=== PATIENT | female | born 1945 | race Caucasian/White ===

== ENCOUNTER → 2018-05-08 11:14 | Outpatient (CLI) | payer MEDICARE, MEDICAID, SELFPAY ==
[2018-05-08 12:38] LABS: Alanine Aminotransferase 28 U/L (12-78); Albumin Level 3.7 gm/dL (3.4-5.0); Alkaline Phosphatase 71 U/L (46-116); Anion Gap 16.5 mEq/L (5-15); Aspartate Amino Transferase 25 U/L (15-37); Bilirubin,Total 0.5 mg/dL (0.2-1.0); Blood Urea Nitrogen 26 mg/dL (7-18); Calcium 8.9 mg/dL (8.5-10.1); Carbon Dioxide 23 mmol/L (21.0-32.0); Chloride 104 mmol/L (98-107); Chol/HDL Ratio 4.3 (1-3.5); Cholesterol 260 mg/dL (140-200); Creatinine,Serum 1.16 mg/dL (0.55-1.02); Estimated Glomerular Filt Rate 46 ml/min (>60); GFR (African American) 55 ML/MIN (>60); Globulin 3.6 gm/dl (1.3-3.2); Glucose 97 mg/dL (74-106); HDL Cholesterol 60 mg/dL (29-89); LDL Cholesterol 181 mg/dL (0-130); Potassium 4.5 mmoL/L (3.5-5.1); Sodium 139 mmol/L (136-145); Total Protein,Serum 7.3 gm/dL (6.4-8.2); Triglycerides 97 mg/dL (30-200); VLDL Cholesterol 19 mg/dL (0-40)
== END ==
PROVIDERS: Visit Provider Physician Assistant
DX: Z13.220 Encounter for screening for lipoid disorders (principal); E78.00 Pure hypercholesterolemia, unspecified
CPT/HCPCS: 36415; 80053; 80061

== ENCOUNTER → 2020-09-15 12:47 | Outpatient (CLI) | payer MEDICARE, MEDICAID, SELFPAY ==
--- NOTE | 2020-09-15 13:00 | US_ITS ---
PROCEDURE: US THYROID CLINICAL INDICATION: H/O GOITER COMPARISON: No exams were available for comparison FINDINGS: Right lobe: 1.2 x 0.7 x 0.7 centimeters Left lobe: Left thyroid lobectomy is noted. Isthmus: 0.16 Additional findings: Right lobe of thyroid gland is small in size and demonstrates minor heterogeneous echogenicity. Vascularity appears within normal limits. No focal nodules within the limitations of the study. IMPRESSION: Left thyroid lobectomy. Heterogeneous echotexture of the thyroid gland. Dictated by: Ilda Lee 09/15/2020 16:48 Ilda Lee in [facility] 09/15/2020 16:48
== END ==
PROVIDERS: PCP Family Medicine; Visit Provider Family Medicine
DX: Z86.39 Personal history of other endocrine, nutritional and metabolic disease (principal)
CPT/HCPCS: 76536

== ENCOUNTER → 2020-11-21 11:51 | Outpatient (CLI) | payer MEDICARE, MEDICAID, SELFPAY | PROVIDERS: Visit Provider Internal Medicine Gastroenterology | DX: Z01.812 Encounter for preprocedural laboratory examination (principal); Z20.822 Contact with and (suspected) exposure to COVID-19; Z13.810 Encounter for screening for upper gastrointestinal disorder | CPT/HCPCS: U0003 ==

== ENCOUNTER 2020-11-24 08:36 | Day surgery (SDC) | payer MEDICARE, MEDICAID, SELFPAY ==
[2020-11-20 11:37] VITALS: BMI 25.6
[2020-11-24] VITALS (7 sets, daily range): BP systolic 96–209; BP diastolic 41–67; PULSE 38–45; RESP 16–18; TEMP 36.1; O2SAT 94–97
--- NOTE | 2020-11-24 09:53 | P.PCN_ITS ---
[facility] Procedure Note Procedure Note:: Upper Endoscopy Procedure Report: Esophagogastroduodenoscopy with cold biopsies and TTS balloon dilation Endoscopost: Shravan Casey II, MD Referring Physician: Terrence Singer MD Date of Procedure: November 24, 2020 Equipment: Olympus GIF 190 standard upper endoscope Sedation: MAC sedation Indications: Mrs. Moran is a 75-year-old female with dysphagia, throat fullness and globus sensation. She has mostly trouble with swallowing large pills. She does get some mild intermittent heartburn for which she takes Tums or other antacids (i.e. Tanja-Beggs). She does have some hoarseness. She also reports moderate belching. She does state that she had goiter surgery and removal of one half of the thyroid goiter 40 or 50 years ago. Her symptoms have not changed over time. She has had no prior endoscopy. She reports no abdominal pain or bloating. She reports regular bowel function but does have some incomplete bowel evacuation. Procedure: Prior to the procedure, a history and physical exam was performed, and patient's medications and allergies were reviewed. The risks, benefits and alternatives of the sedation and procedure were discussed with the patient. All questions were answered and informed consent was obtained. The patient was brought to the procedure room. Patient identification and proposed procedure were verified by the physician and the nurse. The patient was placed in a left lateral decubitus position and the scope was passed under direct vision. Throughout the p rocedure, the patient's blood pressure, pulse, and oxygen saturations were monitored continuously. The upper GI endoscopy was accomplished without difficulty. The patient tolerated the procedure well. Findings: The scope was passed directly into the upper esophagus and advanced to the third portion of the duodenum. The post bulbar duodenum and duodenal bulb were normal with normal mucosa and conniventes. The scope was withdrawn through a normal duodenal bulb and pylorus into the stomach. There was some mild reactive gastropathy of the antrum with some bile reflux. Cold biopsies were taken from the antrum. The body and fundus were grossly normal. Upon retroflexion there was a large hiatal hernia without Nic's erosions. This was paraesophageal hernia and was 8 cm. The diaphragmatic hiatus was at 42 cm and the gastroesophageal junction/top of the gastric folds was at 34 cm. The scope was then withdrawn into the esophagus. There was no evidence of reflux esophagitis or Munoz's. There was a serrated Z-line and biopsies were taken at the GE junction. There was evidence of presbyesophagus and esophageal dysmotility. The entire esophagus was dilated to 60 Sudanese/20 mm with a TTS hydrostatic balloon. There was some resistance at the cricopharyngeus. The remainder of the esophageal mucosa was normal. Impression: 1. Cricopharyngeal spasm status post dilation to 20 mm 2. Nonerosive GERD with moderate esophageal dysmotility/presbyesophagus 3. Large hiatal hernia/paraesophageal hernia (8 cm) 4. Mild linear reactive gastropathy Plan: I will follow-up the biopsies. The patient does have esophageal dysmotility with cricopharyngeal spasm which may be resulting in the throat fullness and soreness. We will discuss management/treatment options.
--- NOTE | 2020-11-24 10:00 | HMH.ANESCL ---
[facility] Anesthesia Checklist - Structural Data Admitted From: Home Planned Operative Procedure/s: egd Consent for Planned Operative Procedure(s) Verified: Yes - Airway Assessment C-Spine Mobility Assessed: Yes TMJ Mobility Assessed: Yes Dentition: Poor Dentition - Neurological Assessment Level of Consciousness: Awake, Alert, Appropriate - Anesthesia Plan Anesthesia Risk discussed: Yes Anesthesia Plan: Verified ASA Class: II Anesthesia Type: MAC [facility] History I have reviewed the patient's past medical history: Yes Medical History: Reports:: Heart Murmur, Hyperlipidemia Denies:: Cancer, Diabetes Mellitus Type 1, Diabetes Mellitus Type 2, Internal Pacemaker, MRSA, Seizures *Have you ever received a pneumonia vaccine?: No *Have you received a flu vaccine this season?: No Anesthesia experience/problems:: none Other Surgeries: No: Pacemaker Amputation: No Fractures: No - *Social History Last grade of school completed: 9th or 10th Smoking Status: Never smoker Alcohol Intake: never Substance Use Type: denies use *Occupational Status:: retired Housing: house Household Members: family *Travel in the last 8 weeks: None Family Hx:: No significant family history
== END 2020-11-24 11:06 | disposition home or self-care (01) ==
LOC: OUTP 08:38
PROVIDERS: PCP Family Medicine; Visit Provider Internal Medicine Gastroenterology
PROC: 0DJ08ZZ Inspection of Upper Intestinal Tract, Via Natural or Artificial Opening Endoscopic (ICD-10-PCS; CPT 43235; principal; 2020-11-24 09:30)
DX: J39.2 Other diseases of pharynx (principal); K21.9 Gastro-esophageal reflux disease without esophagitis; K22.4 Dyskinesia of esophagus; K44.9 Diaphragmatic hernia without obstruction or gangrene; K31.9 Disease of stomach and duodenum, unspecified; R01.1 Cardiac murmur, unspecified; E78.5 Hyperlipidemia, unspecified; Z79.899 Other long term (current) drug therapy
CPT/HCPCS: 43239; 43249; 88305; C1726

== ENCOUNTER 2020-12-22 11:00 | Emergency (ER) | payer MEDICARE, MEDICAID, SELFPAY ==
[2020-12-22 11:02] VITALS: BP 220/105; PULSE 43; RESP 18; TEMP 36.8; O2SAT 97; BMI 28.3
--- NOTE | 2020-12-22 11:05 | HMH.EDGENADL ---
ED Disposition Clinical Impression: Third degree heart block by electrocardiogram Disposition: Xfer Short-Term Hosp Condition on Discharge: Good Referrals: Elia Singer MD [Primary Care Provider] - - Critical Care Critical Care Time: Yes (Patient required greater than 30 minutes of critical care monitoring) Attestation: On , the high probability of a clinically significant, sudden or life threatening deterioration of the following system(s) required my full and direct attention, intervention and personal management. The time I documented below is in addition to time spent performing reported procedures but includes the following listed in this critical care notation. Vital system(s) involved:: Circulatory Failure My critical care processes included: Assessment & monitoring of V/S, Initial and Re-exams, Data Review/Interpretation, Coordinating Care, Medication Orders and management, Documentation Medical Decision Making - Isaac Inquiry Pt receiving controlled substance: No Vital Signs: 12/22/20 11:02 12/22/20 11:45 12/22/20 12:11 Temperature 98.2 F Temperature Source Oral Pulse Rate 42 L 45 L Pulse Rate [Right] 43 L Respiratory Rate 18 22 17 Blood Pressure 221/72 H Blood Pressure [Right Arm] 220/105 H Blood Pressure Mean [Right Arm] 143 Blood Pressure Source [Right Arm] Manual Cuff/ Auscultation 02 Sat by Pulse Oximetry 97 94 L 94 L Oxygen Delivery Method Room Air Room Air - Lab Data Lab Results 12/22/20 11:18: WBC 10.4, RBC 4.83, Hgb 14.3, Hct 43.1, MCV 89.3, MCH 29.7, MCHC 33.3, RDW 13.9, Plt Count 185, MPV 8.8, Neut % (Auto) 70.2, Lymph % (Auto) 18.0, Woodson % (Auto) 6.8, Eos % (Auto) 4.1, Baso % (Auto) 1.0, Neut # (Auto) 7.3, Lymph # (Auto) 1.9, Woodson # (Auto) 0.7, Eos # (Auto) 0.4, Baso # (Auto) 0.1 12/22/20 11:18: Sodium 140, Potassium 4.5, Chloride 109 H, Carbon Dioxide 24, Anion Gap 11.5, BUN 21 H, Creatinine 1.20 H, Estimated Creat Clear 42, Estimated GFR 44 L, Est GFR ( Amer) 53 L, Glucose 100, Calcium 8.9, Total Bilirubin 0.9, AST 27, ALT 25, Alkaline Phosphatase 83, Total Protein 7.6, Albumin 4.3, Globulin 3.3 H, Albumin/Globulin Ratio 1.3 Result diagrams: 12/22/20 11:18 12/22/20 11:18 Orders (Tests/Meds): ED MEDICATIONS Discontinued Medications Generic Name Dose Route Start Last Admin Trade Name Freq PRN Reason Stop Dose Admin Lactated Ringer's 500 mls @ 999 mls/hr 12/22/20 12:00 12/22/20 12:29 Lactated Ringer's 1000 Ml Bag IV 12/22/20 12:30 999 mls/hr .Q31M PRANAV Administration ORDERS Category Date Time Status Covid-19 Nasal PCR ([facility]) Routine Lab 12/22/20 12:51 Ordered T4 (Thyroxine) Stat Lab 12/22/20 11:18 Received Thyroid Stimulating Hormone Stat Lab 12/22/20 11:18 Received CA echo doppler complete Stat Y 12/22/20 13:02 Ordered - ECG Data Tracing #1 ECG initial impression date: 12/22/20 ECG initial impression time: 11:17 Normal Sinus Rhythm: No (third degree block with a ventricular rate of 43) Conduction abnormalities present: 3rd degree AV block Medical Decision Narrative: Upon arrival patient is hypotensive bradycardic and found to be in third-degree heart block with past medical history of rheumatic fever. Patient was mentating appropriately on room air in no acute distress she has no chest pain. Laboratory work-up is obtained and overall unremarkable creatinine was 1.2 no previous baseline noted. Electrolytes all appear to be within normal limits. I spoke with our veterinary poultry inspector on the phone that did not have anybody with interventional capabilities overnight patient also has a son who is in the hospital at [facility] she stated that if she were to be admitted to the hospital she would prefer to be admitted to [facility]. I discussion with Dr. Lawton and discussed the patient with him he stated that he would be happy to take care of her if she were to stay here. Patient requested transfer spoke with Dr. Guerrero
--- NOTE | 2020-12-22 11:10 | ECG_ITS ---
APPROVED REPORT Exam: Resting ECG HR:43 bpm ECG Measurements Heart Rate 43 AXES ID P 63 QRSd 126 QRS 76 QT 532 T 54 QTc 449 Conclusion Marked sinus bradycardia with AV dissociation and Wide QRS rhythm Right bundle branch block Abnormal ECG Electronically signed by : Khang Peter MD 12/22/2020 17:16:21
[2020-12-22 11:45] VITALS: PULSE 42; RESP 22; O2SAT 94
[2020-12-22 11:55] LABS: Basophils # 0.1 K/mm3 (0-0.2); Eosinophils # 0.4 K/mm3 (0.0-0.4); Eosinophils % 4.1 % (0.1-12.0); Hematocrit 43.1 % (37.0-47.0); Hemoglobin 14.3 g/dL (12.2-16.2); Lymphocytes # 1.9 K/mm3 (0.7-4.5); Mean Corpuscular HGB Conc 33.3 g/dL (31.8-35.4); Mean Corpuscular Hemoglobin 29.7 pg (27.0-31.2); Mean Corpuscular Volume 89.3 fl (81-99); Mean Platelet Volume 8.8 fl (7.4-10.4); Monocytes # 0.7 K/mm3 (0.1-1.0); Monocytes % 6.8 % (1.7-9.3); Neutrophils # 7.3 K/mm3 (1.8-7.8); Neutrophils % 70.2 % (37.0-80.0); Platelet Count 185 K/mm3 (142-424); Red Blood Count 4.83 M/mm3 (4.20-5.40); Red Cell Distribution Width 13.9 % (11.5-17.5); White Blood Count 10.4 K/mm3 (4.8-10.8)
[2020-12-22 11:57] LABS: Chloride 109 mmol/L (98-107); Potassium 4.5 mmoL/L (3.5-5.1); Sodium 140 mmol/L (136-145)
[2020-12-22 12:00] LABS: Alanine Aminotransferase 25 U/L (12-78); Albumin Level 4.3 g/dl (3.5-5.0); Albumin/Globulin Ratio 1.3 (1.1-1.8); Alkaline Phosphatase 83 U/L (38-126); Anion Gap 11.5 mEq/L (5-15); Aspartate Amino Transferase 27 U/L (14-36); Bilirubin,Total 0.9 mg/dl (0.2-1.3); Blood Urea Nitrogen 21 mg/dl (7-17); Calcium 8.9 mg/dl (8.4-10.2); Carbon Dioxide 24 mmol/L (22.0-30.0); Creatinine Clearance Estimated 42 mL/min (50-200); Estimated Glomerular Filt Rate 44 ml/min (>60); GFR (African American) 53 ML/MIN (>60); Globulin 3.3 g/dL (1.3-3.2); Glucose 100 mg/dl (74-100); Total Protein,Serum 7.6 g/dl (6.3-8.2)
[2020-12-22 12:11] VITALS: BP 221/72; PULSE 45; RESP 17; O2SAT 94
--- NOTE | 2020-12-22 12:13 | PC.NURSE ---
Cardiology to return call.
--- NOTE | 2020-12-22 12:30 | PC.NURSE ---
LATASHA BARRAGAN spoke with PEE Henson for cardiology at this time
--- NOTE | 2020-12-22 12:36 | PC.NURSE ---
patient signed DNR paperwork and is in hospital file
--- NOTE | 2020-12-22 12:44 | PC.NURSE ---
LATASHA BARRAGAN at speaking with pt and his sister about POC at this time
--- NOTE | 2020-12-22 12:48 | PC.NURSE ---
Calling [facility] at this time.
--- NOTE | 2020-12-22 12:52 | PC.NURSE ---
[facility] to return call
--- NOTE | 2020-12-22 12:53 | PC.NURSE ---
LATASHA BARRAGAN speaking with Dr. Lawton
--- NOTE | 2020-12-22 12:53 | PC.NURSE ---
speaking to dr Lawton
--- NOTE | 2020-12-22 13:02 | CA_ITS ---
APPROVED REPORT EXAM: Comprehensive 2D, Doppler, and color-flow Echocardiogram Video Software Engineer: Fatimah Collado CRT Ht: 5 ft 1 in Wt: 150lbs BSA: 1.67 BP: 220/105 mmHg Indications: 3RD Degree AV BLOCK, BRADYCARDIA, HTN, HLD 2D Dimensions LVOT 1.70 cm (M/F) 1.5-2.5 LA Volume 52.30 mL LA Volume Index 31.30 mL/m2 (M/F) 16-34 M-Mode Dimensions RVDd 3.13 cm (0.9-2.6) LA Diam 3.67 cm (1.9-4.0) LVDd 3.88 cm (3.5-5.7) Ao Diam 2.76 cm (2.0-3.7) LVDs 2.28 cm (3.5-5.7) IVSd 1.63 cm (0.6-1.1) PWd 1.22 cm (0.6-1.1) EF (Teich) 72.80% FS 41.20% EDV (Teich) 65.10 mL ESV (Teich) 17.70 mL LV Diastology E Decel Time 140.00 (160-240 msec) E/A Ratio 1.61 MED E' 6.10 (< 7 cm/sec) MED A' 10.60 cm/s E'/MED E' Ratio 34.85 (>14) LAT E' 8.90 (<10 cm/sec) LAT A' 6.50 cm/s E/LAT E' Ratio 23.89 (>14) Aortic Valve LVOT Max 135.00 (70-110 cm/s) LVOT VTI 30.06 cm AoV Peak Kevin. 584.00 (50-130 cm/s) AI PHT 684.00 ms AO Peak GR. 136.70 mmHg AO Mean GR. 86.60 (<5 mmHg) AO VTI 162.08 (18-25 cm) EVETTE (VTI) 0.42 (2.5-4.5 cm2) Mitral Valve MV E Max Kevin. 213.00 (40-130 cm/s) MV A Velocity 132.00 (40-130 cm/s) E/A Ratio 1.61 MV Decel. Time 140.00 (160-240 ms) MV PHT 41.00 ms Pulmonary Valve PV Peak Velocity 247.00 (50-150 cm/s) Tricuspid Valve TR P. Velocity 415.00 cm/s RAP Estimate 10.00 mmHg RVSP 78.80 mmHg Left Ventricle Technically difficult study left atrium is mildly enlarged, left ventricle is normal size, mild concentric left ventricular hypertrophy, visually estimated ejection fraction 55% with no regional wall motion abnormality, diastolic parameters are inconclusive. Right Ventricle Right atrium and right ventricle are mildly enlarged with normal contractility. Aortic Valve Aortic valve is thickened and calcified, mean gradient of 98 mmHg is noted in the study, the valve area is calculated at 44 cm??? represents critical aortic stenosis, there is mild aortic insufficiency. Mitral Valve Mitral valve has mitral annular calcification which extends in both anterior and posterior mitral leaflet, the degree of mitral stenosis. The degree of mitral stenosis is not accurately calculated in the study. There is mild mitral regurgitation. Tricuspid Valve Tricuspid valve leaflets are minimally thickened, there is mild tricuspid regurgitation, calculated right ventricular systolic pressure 68 mmHg. Pulmonic Valve Pulmonic valve is poorly visualized. Great Vessels Aortic root is normal size. Inferior vena cava is not well visualized. Pericardium No significant pericardial effusion noted Conclusion 1. Biatrial enlargement, normal left ventricular size, mild concentric left ventricular hypertrophy, visually estimated ejection fraction 55% with no regional wall motion abnormality, diastolic parameters are inconclusive. 2. Thickened and calcified aortic valve with critical aortic stenosis valve area is 0.4 cm??? there is mild aortic insufficiency. 3. Thickened and calcified mitral valve degree of mitral stenosis is not ascertained by this study. 4. Mild mitral and tricuspid regurgitation. Calculated right ventricular systolic pressure is 68 mmHg. 5. No significant pericardial effusion noted. Electronically signed by : Tony Ozuna MD 12/24/2020 08:37:46
--- NOTE | 2020-12-22 13:02 | PC.NURSE ---
notified [facility] lab staff of doppler order
--- NOTE | 2020-12-22 13:05 | PC.NURSE ---
LATASHA BARRAGAN states cardiology at [facility] accepted pt, states they are going to speak with the medicine service about accepting pt and call us back
--- NOTE | 2020-12-22 13:24 | PC.NURSE ---
pt accepted per medicine service at [facility] waiting head bone grinder back from transfer center about bed availability
--- NOTE | 2020-12-22 13:26 | PC.NURSE ---
[facility] lab staff at for echo
[2020-12-22 13:34] LABS: Coronavirus 19, PCR Not Detected (NotDetected); Influenza A, PCR Not Detected (NotDetected); Influenza B, PCR Not Detected (NotDetected)
--- NOTE | 2020-12-22 13:37 | PC.NURSE ---
Dr Reyna Cardiology accepted pt. Dr Grubbs medicine accepted pt as well awaiting bed assignment
--- NOTE | 2020-12-22 14:07 | PC.NURSE ---
Gave report to Maylin ARRINGTON at [facility] at this time
--- NOTE | 2020-12-22 14:12 | PC.NURSE ---
calling [facility] for transfer at this time
[2020-12-22 14:15] VITALS: BP 201/91; PULSE 43; RESP 18; TEMP 36.8; O2SAT 97
--- NOTE | 2020-12-22 14:37 | PC.NURSE ---
Maylin ARRINGTON at [facility] aware that patient is leaving at this time
== END 2020-12-22 14:37 | disposition short-term general hospital (02) ==
PROVIDERS: Emergency Provider Emergency Medicine; PCP Family Medicine
DX: I44.2 Atrioventricular block, complete (principal); E03.9 Hypothyroidism, unspecified; I10 Essential (primary) hypertension; E78.5 Hyperlipidemia, unspecified; R01.1 Cardiac murmur, unspecified; Z79.899 Other long term (current) drug therapy; Z20.822 Contact with and (suspected) exposure to COVID-19
CPT/HCPCS: 80053; 84436; 84443; 85025; 93005; 93306; 99284; U0003

== ENCOUNTER 2021-04-15 15:30 | Emergency (ER) | payer MEDICARE, MEDICAID, SELFPAY ==
[2021-04-15 15:40] VITALS: BP 109/51; PULSE 77; RESP 20; TEMP 37.3; O2SAT 97; BMI 29.2
--- NOTE | 2021-04-15 16:29 | PC.NURSE ---
PATIENT SENT TO ER PER Gutierrez ROCHE APRN FOR FURTHER EVALUATION. REPORT GIVEN TO Chase MALDONADO RN
[2021-04-15 16:31] VITALS: BP 105/58; PULSE 69; RESP 18; TEMP 37.3; O2SAT 95; BMI 29.2
--- NOTE | 2021-04-15 16:38 | CT_ITS ---
PROCEDURE INFORMATION: Exam: CT Abdomen And Pelvis Without Contrast Exam date and time: 04/15/2021 4:38 PM Age: 75 years old Clinical indication: Other: Bloody stools and diarrhea; Prior surgery; Surgery type: Cardiac stents, pacemaker; Additional info: Diarrhea bloody stools TECHNIQUE: Imaging protocol: Computed tomography of the abdomen and pelvis without contrast. Radiation optimization: All CT scans at this facility use at least one of these dose optimization techniques: automated exposure control; mA and/or kV adjustment per patient size (includes targeted exams where dose is matched to clinical indication); or iterative reconstruction. COMPARISON: No relevant prior studies available. FINDINGS: Lungs: Chronic reticular ground-glass and honeycombing in the bilateral lung bases. This is most compatible with chronic interstitial lung disease. Diaphragm: A large hiatal hernia is present. Liver: Normal. No mass. Gallbladder and bile ducts: Normal. No calcified stones. No ductal dilation. Pancreas: There is diffuse atrophy of the pancreatic parenchyma. There is diffuse, benign fatty infiltration of the pancreas. The pancreas is otherwise unremarkable. Spleen: Normal. No splenomegaly. Adrenal glands: Normal. No mass. Kidneys and ureters: Normal. No hydronephrosis. Stomach and bowel: No bowel wall thickening, obstruction, or other acute pathology. Diffuse colonic diverticulosis is present. There is moderately excessive colonic stool content. Appendix: A normal appendix is identified. Intraperitoneal space: No free fluid, fluid collections, or pneumoperitoneum. Retroperitoneal space: No acute abnormalities in the retroperitoneal space. Vasculature: The vasculature demonstrates diffuse marked atherosclerotic calcification. Lymph nodes: No retroperitoneal, pelvic, or mesenteric adenopathy. Urinary bladder: Unremarkable as visualized. Reproductive: Unremarkable as visualized. Bones/joints: No acute skeletal pathology. Moderate multilevel degenerative changes of the spine, as manifested by multilevel anterior osteophytes and multilevel decrease in intervertebral disc space. Soft tissues: Bilateral fat containing femoral hernias. There is a fat-containing umbilical hernia. IMPRESSION: 1. NO ACUTE ABDOMINOPELVIC FINDINGS TO EXPLAIN THE PATIENT'S SYMPTOMS. 2. FINDINGS AT THE LUNG BASES ARE MOST IN FAVOR WITH CHRONIC INTERSTITIAL LUNG DISEASE. SUPERIMPOSED INFECTIOUS PNEUMONIC PROCESS SHOULD BE ENTERTAINED IN THE APPROPRIATE CLINICAL SETTING. 3. INCIDENTAL FINDINGS DETAILED ABOVE.
[2021-04-15 18:16] LABS: Basophils % 0.4 % (0.1-2.0); Eosinophils % 0.3 % (0.1-12.0); Hematocrit 34.4 % (37.0-47.0); Hemoglobin 11.6 g/dL (12.2-16.2); Lymphocytes # 0.8 K/mm3 (0.7-4.5); Lymphocytes % 13.1 % (10-50); Mean Corpuscular HGB Conc 33.7 g/dL (31.8-35.4); Mean Corpuscular Hemoglobin 29.9 pg (27.0-31.2); Mean Corpuscular Volume 88.7 fl (81-99); Mean Platelet Volume 9.1 fl (7.4-10.4); Monocytes # 0.2 K/mm3 (0.1-1.0); Monocytes % 3.7 % (1.7-9.3); Neutrophils % 82.6 % (37.0-80.0); Platelet Count 132 K/mm3 (142-424); Red Blood Count 3.88 M/mm3 (4.20-5.40); Red Cell Distribution Width 13.1 % (11.5-17.5); White Blood Count 6.1 K/mm3 (4.8-10.8)
[2021-04-15 18:19] LABS: Alanine Aminotransferase 30 U/L (12-78); Albumin Level 3.6 g/dl (3.5-5.0); Albumin/Globulin Ratio 1.2 (1.1-1.8); Alkaline Phosphatase 72 U/L (38-126); Anion Gap 7.4 mEq/L (5-15); Aspartate Amino Transferase 64 U/L (14-36); Bilirubin,Total 0.6 mg/dl (0.2-1.3); Blood Urea Nitrogen 22 mg/dl (7-17); Calcium 7.5 mg/dl (8.4-10.2); Carbon Dioxide 30 mmol/L (22.0-30.0); Chloride 94 mmol/L (98-107); Creatinine Clearance Estimated 35 mL/min (50-200); Estimated Glomerular Filt Rate 34 ml/min (>60); GFR (African American) 41 ML/MIN (>60); Globulin 3.1 g/dL (1.3-3.2); Glucose 127 mg/dl (74-100); Potassium 3.4 mmoL/L (3.5-5.1); Sodium 128 mmol/L (136-145); Total Protein,Serum 6.7 g/dl (6.3-8.2)
[2021-04-15 18:20] LABS: Lactic Acid 0.9 mmol/L (0.7-2.1)
[2021-04-15 18:23] LABS: Activated Partial Thrombo Time 34.5 seconds (22.8-30.6); INR 0.94 (0.9-1.1); Prothrombin Time 10.7 seconds (10.1-12.5)
[2021-04-15 18:28] LABS: Influenza A, PCR Not Detected (NotDetected); Influenza B, PCR Not Detected (NotDetected)
--- NOTE | 2021-04-15 18:40 | PC.NURSE ---
Pt to rad
--- NOTE | 2021-04-15 18:50 | PC.NURSE ---
Pt returned from rad
[2021-04-15 19:00] LABS: Coronavirus 19, PCR Detected (NotDetected)
--- NOTE | 2021-04-15 19:48 | HMH.EDGENADL ---
ED Disposition Clinical Impression: COVID-19, Dehydration Disposition: Home, Self-Care Condition on Discharge: Good Instructions: DI for Diarrhea and Traveler's Diarrhea -- Adult, DI for Nausea -- Adult, Coronavirus Disease 2019 Additional Instructions: Please follow up with your primary care physician in 2-3 days on telehealth for further management. Please self quarantine for 14 days and return to ED for any concerning symptoms such as difficulty breathing, chest pain, inability to eat and drink, worsening bloody stools or any other concerning symptoms. Referrals: Elia Singer MD [Primary Care Provider] - Time of Disposition: 20:00 - Critical Care Critical Care Time: No Attestation: On 04/15/21, the high probability of a clinically significant, sudden or life threatening deterioration of the following system(s) required my full and direct attention, intervention and personal management. The time I documented below is in addition to time spent performing reported procedures but includes the following listed in this critical care notation. Medical Decision Making - Medical Records Medical records reviewed: Yes: I reviewed the patient's medical records. - Isaac Inquiry Pt receiving controlled substance: No Vital Signs: 04/15/21 15:40 04/15/21 16:31 04/15/21 20:00 Temperature 99.2 F 99.2 F 98.2 F Temperature Source Oral Oral Oral Pulse Rate 80 Pulse Rate [Right Brachial] 77 69 Respiratory Rate 20 18 20 Blood Pressure 135/78 Blood Pressure [Right Arm] 109/51 L 105/58 L Blood Pressure Mean [Right Arm] 70 73 Blood Pressure Source [Right Arm] Automatic Cuff Automatic Cuff Blood Pressure Position [Right Arm] Sitting Sitting 02 Sat by Pulse Oximetry 97 95 Oxygen Delivery Method Room Air Room Air Room Air - Lab Data Lab results reviewed: Yes: I reviewed the patient's lab results. Lab Results 04/15/21 17:58: WBC 6.1, RBC 3.88 L, Hgb 11.6 L, Hct 34.4 L, MCV 88.7, MCH 29.9, MCHC 33.7, RDW 13.1, Plt Count 132 L, MPV 9.1, Neut % (Auto) 82.6 H, Lymph % (Auto) 13.1, Chase % (Auto) 3.7, Eos % (Auto) 0.3, Baso % (Auto) 0.4, Neut # (Auto) 5.0, Lymph # (Auto) 0.8, Chase # (Auto) 0.2, Eos # (Auto) 0.0, Baso # (Auto) 0.0 04/15/21 17:58: PT 10.7, INR 0.94, APTT 34.5 H 04/15/21 17:58: Sodium 128 L, Potassium 3.4 L, Chloride 94 L, Carbon Dioxide 30, Anion Gap 7.4, BUN 22 H, Creatinine 1.50 H, Estimated Creat Clear 35, Estimated GFR 34 L, Est GFR ( Amer) 41 L, Glucose 127 H, Calcium 7.5 L, Total Bilirubin 0.6, AST 64 H, ALT 30, Alkaline Phosphatase 72, Total Protein 6.7, Albumin 3.6, Globulin 3.1, Albumin/Globulin Ratio 1.2 04/15/21 17:58: Lactate 0.9 04/15/21 18:20: SARS-CoV-2 (PCR) Detected A, Influenza A Untype (PCR) Not detected, Influenza Type B (PCR) Not detected Result diagrams: 04/15/21 17:58 04/15/21 17:58 Medical Decision Narrative: Mrs. Moran is a 75-year-old female who presents to the emergency department with diarrhea (blood tinged), n/v and poor p.o. intake for the last few days. Patient is afebrile and hemodynamically stable on arrival. Patient is well-appearing nontoxic. Physical exam remarkable for nontender abdomen. Equal breath sounds bilaterally with no wheezing, rales or rhonchi. No abnormal skin rashes. Of note patient had a Covid exposure on . Differentials to consider but not limited to include; viral mediated illness including COVID-19, viral gastroenteritis, colitis, diverticular disease, UTI. Basic labs, UA, PT/PTT, CT abdomen and pelvis are obtained for further evaluation results are remarkable for a mild IRIS, hyponatremia 128 likely in the setting of dehydration. Patient is given a bolus of fluid for resuscitation. Along with Tylenol and ibuprofen. Covid swab is positive for COVID-19. Patient is instructed to self quarantine for 14 days and to follow-up with primary care physician via telehealth in 2 to 3 days. Patient instructed to eat 3 balanced meals
[2021-04-15 20:00] VITALS: BP 135/78; PULSE 80; RESP 20; TEMP 36.8; O2SAT 96
== END 2021-04-15 20:07 | disposition home or self-care (01) ==
LOC: UTC 15:37 → ER 16:25
PROVIDERS: Emergency Provider Student in an Organized Health Care Education/Training Program; PCP Family Medicine
DX: U07.1 COVID-19 (principal); E86.0 Dehydration; E78.5 Hyperlipidemia, unspecified; R01.1 Cardiac murmur, unspecified
CPT/HCPCS: 74176; 80053; 83605; 85025; 85610; 85730; 99283; C9803; U0003; U0005

== ENCOUNTER 2021-04-17 13:16 | Inpatient (IN) | payer MEDICARE, MEDICAID, SELFPAY ==
[2021-04-17] VITALS (11 sets, daily range): BP systolic 95–130; BP diastolic 50–72; PULSE 70–80; RESP 18–40; TEMP 36.6–36.9; O2SAT 87–99; BMI 28.3; BMI 29.0
--- NOTE | 2021-04-17 13:32 | XR_ITS ---
PROCEDURE: XR CHEST PORTABLE CLINICAL HISTORY: covid +, lethargic COMPARISON: CR CXR CHEST(2 VIEWS-NOT PORTABLE) from 04/26/[address] ABDOMEN PELVIS WO CON from 04/15/2021 FINDINGS: Left subclavian pacemaker present with pacer wires in the region of the right atrium and right ventricle. Patchy airspace disease in the left upper and left lower lobe peripherally and in the right lower lobe laterally.. Prior TAVR. Mild prominence of the left hilum nonspecific. Biapical pleural thickening. No acute bony abnormalities. IMPRESSION: Bilateral pneumonia Mild prominence of the left hilum. Other nonacute findings as described above Dictated by: Tai Clemente MD 04/17/2021 14:12 Tai Clemente MD in [facility] 04/17/2021 14:12
--- NOTE | 2021-04-17 13:33 | PC.NURSE ---
rad notified of chest xray
[2021-04-17 13:41] LABS: Chloride 93 mmol/L (98-107); Potassium 3.1 mmoL/L (3.5-5.1); Sodium 130 mmol/L (136-145)
[2021-04-17 13:42] LABS: Basophils % 0.2 % (0.1-2.0); Eosinophils % 0.1 % (0.1-12.0); Hematocrit 32.9 % (37.0-47.0); Hemoglobin 11.5 g/dL (12.2-16.2); Lymphocytes # 0.8 K/mm3 (0.7-4.5); Lymphocytes % 8.1 % (10-50); Mean Corpuscular HGB Conc 34.9 g/dL (31.8-35.4); Mean Corpuscular Hemoglobin 29.7 pg (27.0-31.2); Mean Corpuscular Volume 85.2 fl (81-99); Mean Platelet Volume 8.9 fl (7.4-10.4); Monocytes # 0.3 K/mm3 (0.1-1.0); Monocytes % 3.3 % (1.7-9.3); Neutrophils # 9.1 K/mm3 (1.8-7.8); Neutrophils % 88.3 % (37.0-80.0); Platelet Count 174 K/mm3 (142-424); Red Blood Count 3.86 M/mm3 (4.20-5.40); Red Cell Distribution Width 13.1 % (11.5-17.5); White Blood Count 10.3 K/mm3 (4.8-10.8)
[2021-04-17 13:43] LABS: Alanine Aminotransferase 31 U/L (12-78); Aspartate Amino Transferase 87 U/L (14-36); Blood Urea Nitrogen 19 mg/dl (7-17); Creatinine Clearance Estimated 42 mL/min (50-200); Estimated Glomerular Filt Rate 44 ml/min (>60); GFR (African American) 53 ML/MIN (>60)
[2021-04-17 13:44] LABS: Albumin Level 3.3 g/dl (3.5-5.0); Albumin/Globulin Ratio 1.1 (1.1-1.8); Alkaline Phosphatase 62 U/L (38-126); Anion Gap 11.1 mEq/L (5-15); Bilirubin,Total 0.7 mg/dl (0.2-1.3); Calcium 7.1 mg/dl (8.4-10.2); Carbon Dioxide 29 mmol/L (22.0-30.0); Globulin 3.1 g/dL (1.3-3.2); Glucose 138 mg/dl (74-100); MANUAL DIFFERENTIAL MANUAL DIFFERENTIAL (MANUAL DIFF); Total Protein,Serum 6.4 g/dl (6.3-8.2)
[2021-04-17 14:01] LABS: Troponin I 0.43 ng/ml (0.00-0.034)
--- NOTE | 2021-04-17 14:01 | PC.NURSE ---
critical lab reported to md suazo 0.43
--- NOTE | 2021-04-17 14:10 | ECG_ITS ---
APPROVED REPORT Exam: Resting ECG HR:68 bpm ECG Measurements Heart Rate 68 AXES WI 170 P 48 QRSd 154 QRS 15 QT 482 T 82 QTc 512 Conclusion Electronic ventricular pacemaker Electronically signed by : Khang Peter MD 04/17/2021 17:53:57
[2021-04-17 14:21] LABS: Lymphocytes % 10 % (10-50); Monocytes % 5 % (2-9); Neutrophils % 85 % (42-76); Platelet Estimate Normal; Total Cells Counted 100
--- NOTE | 2021-04-17 15:20 | HMH.EDGENADL ---
ED Disposition Clinical Impression: Pneumonia due to COVID-19 virus, Elevated troponin Respiratory failure with hypoxia Qualifiers: Chronicity: acute Qualified Code(s): J96.01 - Acute respiratory failure with hypoxia Disposition: Admitted As Inpatient Condition on Discharge: [facility] Critical Care Critical Care Time: No Attestation: On 04/17/21, the high probability of a clinically significant, sudden or life threatening deterioration of the following system(s) required my full and direct attention, intervention and personal management. The time I documented below is in addition to time spent performing reported procedures but includes the following listed in this critical care notation. Medical Decision Making - Isaac Inquiry Pt receiving controlled substance: No Vital Signs: 04/17/21 13:16 04/17/21 13:30 04/17/21 14:00 Temperature 98.5 F Temperature Source Oral Pulse Rate 70 79 Pulse Rate [Right Radial] 73 Respiratory Rate 40 H 24 20 Blood Pressure 121/58 L 117/53 L Blood Pressure [Right Arm] 112/57 L Blood Pressure Mean Blood Pressure Mean [Right Arm] 75 Blood Pressure Source Automatic Cuff Automatic Cuff Blood Pressure Source [Right Arm] Automatic Cuff Blood Pressure Position Supine Supine Blood Pressure Position [Right Arm] Sitting 02 Sat by Pulse Oximetry 96 87 L 98 Oxygen Delivery Method Nasal Cannula Room Air Nasal Cannula Oxygen Flow Rate (LPM) 3 3 04/17/21 14:37 04/17/21 15:11 04/17/21 15:16 Temperature Temperature Source Pulse Rate 72 76 76 Pulse Rate [Right Radial] Respiratory Rate 18 18 18 Blood Pressure 101/50 L 95/51 L 105/51 L Blood Pressure [Right Arm] Blood Pressure Mean 66 63 Blood Pressure Mean [Right Arm] Blood Pressure Source Blood Pressure Source [Right Arm] Blood Pressure Position Blood Pressure Position [Right Arm] 02 Sat by Pulse Oximetry 99 98 96 Oxygen Delivery Method Nasal Cannula Nasal Cannula Nasal Cannula Oxygen Flow Rate (LPM) 3 3 3 04/17/21 15:30 04/17/21 16:00 04/17/21 16:54 Temperature Temperature Source Pulse Rate 74 72 75 Pulse Rate [Right Radial] Respiratory Rate 18 34 H 26 H Blood Pressure 111/57 L 105/52 L 107/55 L Blood Pressure [Right Arm] Blood Pressure Mean 68 67 77 Blood Pressure Mean [Right Arm] Blood Pressure Source Blood Pressure Source [Right Arm] Blood Pressure Position Blood Pressure Position [Right Arm] 02 Sat by Pulse Oximetry 97 96 96 Oxygen Delivery Method Nasal Cannula Nasal Cannula Nasal Cannula Oxygen Flow Rate (LPM) 3 2 2 - Lab Data Lab Results 04/17/21 13:20: WBC 10.3 D, RBC 3.86 L, Hgb 11.5 L, Hct 32.9 L, MCV 85.2, MCH 29.7, MCHC 34.9, RDW 13.1, Plt Count 174 D, MPV 8.9, Neut % (Auto) 88.3 H, Lymph % (Auto) 8.1 L, [place] % (Auto) 3.3, Eos % (Auto) 0.1, Baso % (Auto) 0.2, Neut # (Auto) 9.1 H, Lymph # (Auto) 0.8, [place] # (Auto) 0.3, Eos # (Auto) 0.0, Baso # (Auto) 0.0, Total Counted 100, Neutrophils % (Manual) 85 H, Lymphocytes % (Manual) 10, Monocytes % (Manual) 5, Platelet Estimate Normal 04/17/21 13:20: Sodium 130 L, Potassium 3.1 L, Chloride 93 L, Carbon Dioxide 29, Anion Gap 11.1, BUN 19 H, Creatinine 1.20 H, Estimated Creat Clear 42, Estimated GFR 44 L, Est GFR ( Amer) 53 L D, Glucose 138 H, Calcium 7.1 L, Total Bilirubin 0.7, AST 87 H D, ALT 31, Alkaline Phosphatase 62, Troponin I 0.43 H, Total Protein 6.4, Albumin 3.3 L, Globulin 3.1, Albumin/Globulin Ratio 1.1 04/17/21 13:20: ESR 43 H 04/17/21 13:20: D-Dimer 1.10 H 04/17/21 13:20: C-Reactive Protein 144.3 H 04/17/21 15:20: SARS-CoV-2 (PCR) Detected A, Influenza A Untype (PCR) Not detected, Influenza Type B (PCR) Not detected 04/17/21 15:58: Lactate 0.9 04/17/21 16:54: Troponin I 0.35 H Result diagrams: 04/17/21 13:20 04/17/21 13:20 Orders (Tests/Meds): ED MEDICATIONS Generic Name Dose Route Start Last Admin Trade Name Freq PRN Reason Stop Dose Admin Ceftriaxone Sodium 1 gm/
[2021-04-17 15:28] LABS: Influenza A, PCR Not Detected (NotDetected); Influenza B, PCR Not Detected (NotDetected)
--- NOTE | 2021-04-17 15:28 | CT_ITS ---
PROCEDURE INFORMATION: Exam: CTA Chest With Contrast Exam date and time: 04/17/2021 3:28 PM Age: 75 years old Clinical indication: Other: Hypoxia; Additional info: Covid, hypoxia TECHNIQUE: Imaging protocol: Computed tomographic angiography of the chest with contrast. 3D rendering (Not supervised by radiologist): MIP and/or 3D reconstructed images were created by the technologist. Radiation optimization: All CT scans at this facility use at least one of these dose optimization techniques: automated exposure control; mA and/or kV adjustment per patient size (includes targeted exams where dose is matched to clinical indication); or iterative reconstruction. Contrast material: ISOVUE 370; Contrast volume: 70 ml; Contrast route: INTRAVENOUS (IV); COMPARISON: CR XR CHEST PORTABLE 04/17/2021 2:02 PM FINDINGS: Pulmonary arteries: No evidence of pulmonary embolus to the proximal segmental level Aorta: Unremarkable. No aortic aneurysm. No aortic dissection. Lungs: Multifocal airspace opacities are seen both alveolar and interstitial. These findings are most compatible with infection. Pleural spaces: Unremarkable. No pneumothorax. No pleural effusion. Heart: Aortic valvuloplasty noted. Mild cardiac enlargement. Pacer noted. Lymph nodes: Unremarkable. No enlarged lymph nodes. Diaphragm: Hiatal hernia again noted. Bones/joints: Unremarkable. No acute fracture. Soft tissues: Unremarkable. IMPRESSION: 1. No evidence of pulmonary embolus 2. Multifocal airspace disease compatible with infection
--- NOTE | 2021-04-17 16:05 | PC.NURSE ---
Corinna SANDOVAL RN SPOKE TO GRANDSON AND GAVE HIM AN UPDATE.
--- NOTE | 2021-04-17 16:11 | PC.NURSE ---
NOTIFIED RAD STAFF PT IS READY FOR CT THEY HAD REQUESTED PT HAVE 250 ML OF IV PRIOR TO CT
--- NOTE | 2021-04-17 16:12 | PC.NURSE ---
decreased pt O2 to 2L per NC at this time r/t pt was 98% on 3L will continue to monitor
--- NOTE | 2021-04-17 16:26 | PC.NURSE ---
pt to CT
[2021-04-17 16:37] LABS: Coronavirus 19, PCR Detected (NotDetected)
[2021-04-17 16:37] LABS: Lactic Acid 0.9 mmol/L (0.7-2.1)
[2021-04-17 16:44] LABS: C-Reactive Protein 144.3 mg/L (0-4)
--- NOTE | 2021-04-17 16:46 | PC.NURSE ---
LATASHA BARRAGAN speaking with Dr. Cao who is diversional therapist's assistant for Dr Singer
[2021-04-17 16:52] LABS: Erythrocyte Sedimentation Rate 43 mm/hr (0-30)
--- NOTE | 2021-04-17 16:55 | PC.NURSE ---
pt going to be admitted carla k[facility] and mayte aware of admission
[2021-04-17 17:37] LABS: Troponin I 0.35 ng/ml (0.00-0.034)
--- NOTE | 2021-04-17 17:38 | PC.NURSE ---
critical troponin of 0.35 reported to
[2021-04-17 18:46] LABS: Ferritin 1240 ng/ml (11.1-264)
--- NOTE | 2021-04-17 18:50 | PC.NURSE ---
report given to jazz foster
[2021-04-17 20:52] LABS: Troponin I 0.29 ng/ml (0.00-0.034)
--- NOTE | 2021-04-17 23:14 | PC.WOUNDNOTE ---
FRICTION AND REDNESS NOTED.
[2021-04-18] VITALS (10 sets, daily range): BP systolic 101–136; BP diastolic 54–75; PULSE 60–80; RESP 16–22; TEMP 36.5–37.1; O2SAT 87–94; BMI 29.0
--- NOTE | 2021-04-18 03:06 | PC.NURSE ---
A&OX4 BUT CONFUSED AND SLOW TO ANSWER QUESTIONS INTERMITTENTLY. TOLERATING 3LNC AT THIS TIME. PT HAS INTERMITTENT PRODUCTIVE COUGH. SPUTUM THICK AND WHITE IN COLOR. PT HAS SLEPT MAJORITY OF SHIFT. HAS HAD NO C/O THUS FAR. VSS WILL CONTINUE TO MONITOR.
--- NOTE | 2021-04-18 07:59 | HMH.PHAINT ---
Medication list verified with Clinic Pharmacy
[2021-04-18 08:51] LABS: Chloride 101 mmol/L (98-107); Sodium 135 mmol/L (136-145)
[2021-04-18 08:52] LABS: Potassium 3.5 mmoL/L (3.5-5.1)
[2021-04-18 08:54] LABS: Alanine Aminotransferase 35 U/L (12-78); Albumin Level 2.9 g/dl (3.5-5.0); Alkaline Phosphatase 69 U/L (38-126); Aspartate Amino Transferase 95 U/L (14-36); Bilirubin,Total 0.5 mg/dl (0.2-1.3); Blood Urea Nitrogen 21 mg/dl (7-17); Creatinine Clearance Estimated 52 mL/min (50-200); Estimated Glomerular Filt Rate 54 ml/min (>60); GFR (African American) 65 ML/MIN (>60)
[2021-04-18 08:55] LABS: Albumin/Globulin Ratio 0.9 (1.1-1.8); Anion Gap 9.5 mEq/L (5-15); Calcium 6.9 mg/dl (8.4-10.2); Carbon Dioxide 28 mmol/L (22.0-30.0); Globulin 3.2 g/dL (1.3-3.2); Glucose 149 mg/dl (74-100); Total Protein,Serum 6.1 g/dl (6.3-8.2)
--- NOTE | 2021-04-18 09:13 | HMH.HP ---
*Admission Date: 04/17/21 <Ching Gaspar 04/18/21 09:26> *Chief complaint: Shortness of breath <Ching Gaspar 04/18/21 09:26> *History of present illness: Ms. 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 Patient is very vague with scribing her symptoms. We'll continue with routine Covid orders. He remains on Levaquin.With evaluation in the emergency room she was found to be afebrile white blood cell count was 10,300She was started on Rocephin and Zithromax And given IV dexamethasone IV fluid bolus along with potassium.CTA of the chest showed no evidence of pulmonary embolism and mild multifocal airspace disease compatible with infection. She was then admitted for further evaluation and treatment. This a.m. patient denies chest pain and shortness of breath. She states she has no appetite and has been unable to eat the last few days. She describes everything is tasting salty. To note patient did not have the Covid vaccine. <Ching Gaspar 04/18/21 09:26> [facility] History Medical History: Reports:: Arrhythmia, Heart Murmur, Hyperlipidemia, Hypertension, Internal Pacemaker Denies:: Cancer, Diabetes Mellitus Type 1, Diabetes Mellitus Type 2, MRSA, Seizures <Ching Gaspar 04/18/21 09:26> *Have you ever received a pneumonia vaccine?: No <Ching Gaspar 04/18/21 09:26> *Have you received a flu vaccine this season?: No <Ching Gaspar 04/18/21 09:26> Other Medical History: Reports: Hypothyroidism <Ching Gaspar 04/18/21 09:26> Other Surgeries: Yes: Pacemaker (12/22/2020) <Ching Gaspar 04/18/21 09:26> Amputation: No <Ching Gaspar 04/18/21 09:26> Fractures: No <Ching Gaspar 04/18/21 09:26> Comment: TAVR 03/01/2021 <Yana Gasparhy Bob 04/18/21 09:26> - *Social History Smoking Status: Never smoker <Gaspar,Ching Bob 04/18/21 09:26> Alcohol Intake: never <GasparChing Bob 04/18/21 09:26> Substance Use Type: denies use <GasparChing Bob 04/18/21 09:26> *Occupational Status:: retired <Gaspar,Ching - 04/18/21 09:26> Housing: house <GasparChing 04/18/21 09:26> Household Members: family <GasparChing Bob 04/18/21 09:26> *Travel in the last 8 weeks: None <Ching Gaspar 04/18/21 09:26> Family Hx:: Cancer (Father had lung cancer; mother had brain cancer; 2 brothers with lymphoma), Coronary Artery Disease <Gaspar,Ching 04/18/21 09:26> Review of Systems - Review of Systems Patient is a poor historian <Ching Gaspar 04/18/21 09:26> - Constitutional Denies fever(s) <Ching Gaspar 04/18/21 09:26> - Eyes Denies change in vision <Ching Gaspar 04/18/21 09:26> - ENT Reports dizziness, Denies ear pain, Denies sore throat <Gaspar,Ching 04/18/21 09:26> - *Cardiovascular Reports shortness of breath, Denies chest pain <Ching Gaspar 04/18/21 09:26> - *Respiratory Reports cough, Reports shortness of breath <Yana Gasparhy 04/18/21 09:26> - *Gastrointestinal Denies abdominal pain, Denies change in stools, Denies nausea, Denies vomiting <Ching Gaspar 04/18/21 09:26> - *Genitourinary Denies difficulty urinating <Ching Gaspar 04/18/21 09:26> - *Musculoskeletal Denies abnormal walking <Ching Gaspar 04/18/21 09:26> - *Neurologic Reports dizziness, Reports weakness, Denies seizure-like activity <Ching Gaspar 04/18/21 09:26> Meds Home Medications Medication Instructions Recorded Confirmed Type Atorvastatin Calcium [Lipitor 10mg 40 mg PO HS 11/20/20 04/17/21 History Tab] carvediloL [Carvedilol 3.125mg Tab] 3.125 mg PO BID 04/17/21 04/17/21 History Clopidogrel Bisulfate [Clopidogrel 75 mg PO DAILY 04/18/21 04/18/21 History 75mg Tab] Furosemide [Furosemide 40MG tAB*] 40 mg PO DAILY 04/18/21 04/18/21 History Isosorbide Dinitrate 3
--- NOTE | 2021-04-18 09:56 | P.CONPHA_ITS ---
[facility] Pharm[facility] VTE Monitoring - Patient Demographics Admission date: 04/17/21 Report Date: 04/18/21 Time: 09:56 Allergies/Adverse Reactions: Patient Allergies No Known Allergies Allergy (Verified 12/22/20 10:26) Height: 1.55 m Weight: 69.9 kg Patient Problems: Current Active Problems COVID-19 (Acute) Dehydration (Acute) Pneumonia due to COVID-19 virus (Acute) Respiratory failure with hypoxia (Acute) Elevated troponin (Acute) Presence of permanent cardiac pacemaker (Acute) - VTE Risk Labs: VTE Related Lab Results Hgb 11.5 g/dL (12.2-16.2) L 04/17/21 13:20 Hct 32.9 % (37.0-47.0) L 04/17/21 13:20 Plt Count 174 K/mm3 (142-424) D 04/17/21 13:20 BUN 21 mg/dl (7-17) H 04/18/21 08:25 Creatinine 1.00 mg/dl (0.52-1.04) 04/18/21 08:25 Estimated Creat Clear 52 mL/min (50-200) 04/18/21 08:25 - Prophylaxis VTE Prophylaxis Ordered?: Yes Types of VTE Prophylaxis: TEDS Knee High, Pharmacological Location of Applied Device: Bilateral Lower Extremeties Pharmacologic Type: Enoxaparin
--- NOTE | 2021-04-18 10:08 | CA_ITS ---
APPROVED REPORT EXAM: Comprehensive 2D, Doppler, and color-flow Echocardiogram Shell Assembler: Fatimah Collado CRT Ht: 5 ft 1 in Wt: 154lbs BSA: 1.69 BP: 134/75 mmHg Indications: COVID, Shortness of Breath, PACER, TAVR 03/01/21 2D Dimensions LVOT 1.50 cm (M/F) 1.5-2.5 LA Volume 51.10 mL LA Volume Index 30.20 mL/m2 (M/F) 16-34 M-Mode Dimensions RVDd 2.27 cm (0.9-2.6) LA Diam 4.01 cm (1.9-4.0) LVDd 3.17 cm (3.5-5.7) Ao Diam 2.91 cm (2.0-3.7) LVDs 1.83 cm (3.5-5.7) IVSd 2.01 cm (0.6-1.1) PWd 0.95 cm (0.6-1.1) EF (Teich) 74.80% FS 42.30% EDV (Teich) 40.00 mL ESV (Teich) 10.10 mL LV Diastology E Decel Time 313.00 (160-240 msec) E/A Ratio 0.89 Aortic Valve LVOT Max 119.00 (70-110 cm/s) LVOT VTI 24.17 cm AoV Peak Kevin. 173.00 (50-130 cm/s) AI PHT 286.00 ms AO Peak GR. 11.90 mmHg AO Mean GR. 6.00 (<5 mmHg) AO VTI 33.38 (18-25 cm) EVETTE (VTI) 1.28 (2.5-4.5 cm2) Mitral Valve MV E Max Kevin. 132.00 (40-130 cm/s) MV A Velocity 148.00 (40-130 cm/s) E/A Ratio 0.89 MV Decel. Time 313.00 (160-240 ms) MV PHT 92.00 ms Pulmonary Valve PV Peak Velocity 129.00 (50-150 cm/s) Tricuspid Valve TR P. Velocity 290.00 cm/s RAP Estimate 10.00 mmHg RVSP 43.60 mmHg Left Ventricle Left atrium is mildly enlarged, left ventricle is normal size, mild concentric left ventricular hypertrophy, visually estimated ejection fraction 55% with no regional wall motion abnormality, Doppler evidence of impaired LV relaxation seen. Right Ventricle Right atrium and right ventricle are normal size and contractility, there is pacemaker is in right atrium and right ventricle. Aortic Valve There is stented valve noted in the aortic position, there is no significant aortic outflow obstruction, there is mild aortic insufficiency. Mitral Valve Mitral valve has mitral calcification which extends in the posterior mitral leaflet, there is no significant mitral inflow obstruction, there is mild mitral regurgitation. Tricuspid Valve Tricuspid valve grossly normal, there is mild tricuspid rotation, calculated right ventricular systolic pressure is 43 mmHg. Pulmonic Valve Pulmonic valve is poorly visualized. Great Vessels Aortic root is normal size. Inferior vena cava is poorly visualized. Pericardium No significant pericardial effusion noted. Conclusion 1. Mildly enlarged left atrium, normal left ventricular size, mild concentric left ventricular hypertrophy, visually estimated ejection fraction 55% with no regional wall motion abnormality, Doppler evidence of impaired LV relaxation seen. 2. Stented aortic valve without significant aortic outflow obstruction, there is mild aortic insufficiency. 3. Mild mitral and tricuspid regurgitation, calculated right ventricular systolic pressure is 43 mmHg. 4. No significant pericardial effusion noted. Electronically signed by : Tony Ozuna MD 04/18/2021 21:09:23
--- NOTE | 2021-04-18 10:35 | HMH.CNCARD ---
History of Present Illness Consult date: 04/18/21 Requesting physician: Elia Singer Consult reason: shortness of breath Chief complaint: SOA History of present illness: This is a 75-year-old white female who presented to the emergency department with complaints of shortness of breath and a cough. The patient states that her shortness of breath got severe as well as her cough. She denies any associated lower extremity edema. The patient denies any chest pain or pressure. She states that she had been afebrile. She denies any chills, nausea, vomiting, diarrhea, PND or orthopnea. The patient did test positive for Covid 19. The patient has not been vaccinated. She has been admitted with Covid protocols. She did have an elevation in her troponin and cardiology has been consulted. The patient sees a concessions manager in [place] by the name of Dr. Cyr. She is status post permanent pacemaker placement in December 2020 and had a TAVR procedure in February 2021. She denies a history of coronary artery disease. [facility] [place] History I have reviewed the patient's past medical history: Yes Medical History: Reports:: Arrhythmia, Heart Murmur, Hyperlipidemia, Hypertension, Internal Pacemaker (12/22/2020) Denies:: Cancer, Diabetes Mellitus Type 1, Diabetes Mellitus Type 2, MRSA, Seizures *Have you ever received a pneumonia vaccine?: No *Have you received a flu vaccine this season?: No Other Medical History: Reports: Hypothyroidism Other Surgeries: Yes: Pacemaker (12/22/2020) Amputation: No Fractures: No - *Social History Smoking Status: Never smoker Alcohol Intake: never Substance Use Type: denies use *Occupational Status:: retired Housing: house Household Members: family *Travel in the last 8 weeks: None Family Hx:: Cancer (Father had lung cancer; mother had brain cancer; 2 brothers with lymphoma), Coronary Artery Disease Meds Home Medications Medication Instructions Recorded Confirmed Type Atorvastatin Calcium [Lipitor 10mg 40 mg PO HS 11/20/20 04/17/21 History Tab] carvediloL [Carvedilol 3.125mg Tab] 3.125 mg PO BID 04/17/21 04/17/21 History Clopidogrel Bisulfate [Clopidogrel 75 mg PO DAILY 04/18/21 04/18/21 History 75mg Tab] Furosemide [Furosemide 40MG tAB*] 40 mg PO DAILY 04/18/21 04/18/21 History Isosorbide Dinitrate 30 mg PO TID 04/18/21 04/18/21 History Levothyroxine Sodium 88 mcg PO DAILY 04/18/21 04/18/21 History [Levothyroxine 88mcg (0.088mg) Tab] Loperamide HCl [Imodium 2 mg 2 mg PO QIDP PRN 04/18/21 04/18/21 History capsule] Losartan Potassium [Cozaar 25mg 25 mg PO BID 04/18/21 04/18/21 History Tablets] Ondansetron [Zofran 4mg ODT] 4 mg PO QIDP PRN 04/18/21 04/18/21 History Allergies Allergy/AdvReac Type Severity Reaction Status Date / Time No Known Allergies Allergy Verified 12/22/20 10:26 Exam Vital signs and Labs for Last 24 Hours: Temp Pulse Resp BP Pulse Ox 98.3 F 70 22 136/75 87 L 04/18/21 08:00 04/18/21 08:00 04/18/21 08:00 04/18/21 08:00 04/18/21 08:00 Laboratory Results - last 24 hr 04/17/21 13:20: WBC 10.3 D, RBC 3.86 L, Hgb 11.5 L, Hct 32.9 L, MCV 85.2, MCH 29.7, MCHC 34.9, RDW 13.1, Plt Count 174 D, MPV 8.9, Neut % (Auto) 88.3 H, Lymph % (Auto) 8.1 L, [place] % (Auto) 3.3, Eos % (Auto) 0.1, Baso % (Auto) 0.2, Neut # (Auto) 9.1 H, Lymph # (Auto) 0.8, [place] # (Auto) 0.3, Eos # (Auto) 0.0, Baso # (Auto) 0.0, Total Counted 100, Neutrophils % (Manual) 85 H, Lymphocytes % (Manual) 10, Monocytes % (Manual) 5, Platelet Estimate Normal 04/17/21 13:20: Sodium 130 L, Potassium 3.1 L, Chloride 93 L, Carbon Dioxide 29, Anion Gap 11.1, BUN 19 H, Creatinine 1.20 H, Estimated Creat Clear 42, Estimated GFR 44 L, Est GFR ( Amer) 53 L D, Glucose 138 H, Calcium 7.1 L, Total Bilirubin 0.7, AST 87 H D, ALT 31, Alkaline Phosphatase 62, Troponin I 0.43 H, Total Protein 6.4, Albumin 3.3 L, Globulin 3.1, Albumin/Globulin Ratio 1.1 04/17/21 13:20: ESR 43 H 04/17/21 13:20: D-Di
--- NOTE | 2021-04-18 19:32 | PC.NURSE ---
Remains on 3 L NC. No acute changes. VSS
[2021-04-19] VITALS (7 sets, daily range): BP systolic 119–152; BP diastolic 59–77; PULSE 62–84; RESP 18–20; TEMP 36.4–37.2; O2SAT 90–99; BMI 29.3
--- NOTE | 2021-04-19 02:46 | PC.NURSE ---
A&OX4 BUT HAS TROUBLE FINDING WORDS AT TIMES. TOLERATING 3LNC, 02 89-91%. UP WITH STANDBY ASSIST TO BATHROOM. HAS HAD NO C/O THUS FAR THIS SHIFT. SLEPT MAJORITY OF SHIFT THUS FAR. VSS WILL CONTINUE TO MONITOR.
[2021-04-19 06:59] LABS: Chloride 101 mmol/L (98-107)
[2021-04-19 07:00] LABS: Potassium 3.4 mmoL/L (3.5-5.1); Sodium 136 mmol/L (136-145)
[2021-04-19 07:02] LABS: Alanine Aminotransferase 38 U/L (12-78); Aspartate Amino Transferase 93 U/L (14-36); Blood Urea Nitrogen 32 mg/dl (7-17); Creatinine Clearance Estimated 52 mL/min (50-200); Estimated Glomerular Filt Rate 54 ml/min (>60); GFR (African American) 65 ML/MIN (>60)
[2021-04-19 07:03] LABS: Albumin Level 2.9 g/dl (3.5-5.0); Albumin/Globulin Ratio 0.9 (1.1-1.8); Alkaline Phosphatase 70 U/L (38-126); Anion Gap 10.4 mEq/L (5-15); Basophils % 0.2 % (0.1-2.0); Bilirubin,Total 0.5 mg/dl (0.2-1.3); Calcium 6.7 mg/dl (8.4-10.2); Carbon Dioxide 28 mmol/L (22.0-30.0); Eosinophils % 0.1 % (0.1-12.0); Globulin 3.2 g/dL (1.3-3.2); Glucose 141 mg/dl (74-100); Hematocrit 33.2 % (37.0-47.0); Hemoglobin 11.4 g/dL (12.2-16.2); Lymphocytes # 0.9 K/mm3 (0.7-4.5); Lymphocytes % 5.1 % (10-50); Mean Corpuscular HGB Conc 34.2 g/dL (31.8-35.4); Mean Corpuscular Hemoglobin 29.5 pg (27.0-31.2); Mean Corpuscular Volume 86.3 fl (81-99); Mean Platelet Volume 9.1 fl (7.4-10.4); Monocytes # 0.6 K/mm3 (0.1-1.0); Monocytes % 3.5 % (1.7-9.3); Neutrophils # 15.8 K/mm3 (1.8-7.8); Platelet Count 270 K/mm3 (142-424); Red Blood Count 3.85 M/mm3 (4.20-5.40); Red Cell Distribution Width 13.6 % (11.5-17.5); Total Protein,Serum 6.1 g/dl (6.3-8.2); White Blood Count 17.3 K/mm3 (4.8-10.8)
[2021-04-19 07:09] LABS: Cholesterol 84 mg/dl (140-200); Triglycerides 60 mg/dl (30-150); VLDL Cholesterol 12 mg/dL (0-40)
[2021-04-19 07:10] LABS: Chol/HDL Ratio 2.5 (1-3.5); HDL Cholesterol 34 mg/dl (40-60)
[2021-04-19 07:12] LABS: MANUAL DIFFERENTIAL MANUAL DIFFERENTIAL (MANUAL DIFF)
[2021-04-19 07:20] LABS: Direct LDL Cholesterol 33.19 mg/dL (100-129)
[2021-04-19 08:29] LABS: Anisocytosis 1+; Hypochromasia 1+; Lymphocytes % 6 % (10-50); Monocytes % 4 % (2-9); Neutrophils % 90 % (42-76); Platelet Estimate Normal; Total Cells Counted 100
--- NOTE | 2021-04-19 09:00 | HMH.ACPN2 ---
<Doris Nielson - Last Filed: 04/19/21 09:00> Internal Medicine - PN: Subj *Date: 04/19/21 *Time: 09:01 Interval history: Patient states she is feeling a little bit better this morning. She is mildly short of breath but denies any chest pain. She states she just feels weak and tired of laying in a bed. She slept off and on throughout the night and did eat some breakfast. Exam Vital signs and Labs for Last 24 Hours: Temp Pulse Resp BP Pulse Ox 97.9 F 68 18 133/61 92 L 04/19/21 04:00 04/19/21 04:00 04/19/21 04:00 04/19/21 04:00 04/19/21 04:00 Laboratory Results - last 24 hr 04/19/21 05:00: Sodium 136, Potassium 3.4 L, Chloride 101, Carbon Dioxide 28, Anion Gap 10.4, BUN 32 H D, Creatinine 1.00, Estimated Creat Clear 52, Estimated GFR 54 L, Est GFR ( Amer) 65, Glucose 141 H, Calcium 6.7 L, Total Bilirubin 0.5, AST 93 H, ALT 38, Alkaline Phosphatase 70, Total Protein 6.1 L, Albumin 2.9 L, Globulin 3.2, Albumin/Globulin Ratio 0.9 L 04/19/21 05:00: WBC 17.3 H D, RBC 3.85 L, Hgb 11.4 L, Hct 33.2 L, MCV 86.3, MCH 29.5, MCHC 34.2, RDW 13.6, Plt Count 270 D, MPV 9.1, Neut % (Auto) 91.0 H, Lymph % (Auto) 5.1 L, [place] % (Auto) 3.5, Eos % (Auto) 0.1, Baso % (Auto) 0.2, Neut # (Auto) 15.8 H, Lymph # (Auto) 0.9, [place] # (Auto) 0.6, Eos # (Auto) 0.0, Baso # (Auto) 0.0, Total Counted 100, Neutrophils % (Manual) 90 H, Lymphocytes % (Manual) 6 L, Monocytes % (Manual) 4, Platelet Estimate Normal, Hypochromasia 1+, Anisocytosis 1+ 04/19/21 05:00: Triglycerides 60, Cholesterol 84 L, LDL Cholesterol Direct 33.19 L, VLDL Cholesterol 12, HDL Cholesterol 34 L, Cholesterol/HDL Ratio 2.5 I & O for Last 24 hours: Intake & Output 04/16/21 04/17/21 04/18/21 04/19/21 11:59 11:59 11:59 11:59 Intake Total 360 / 360 420 / 420 Balance 360 / 360 420 / 420 Weight 154 lb 1.65 oz 155 lb 6.814 oz - Constitutional no acute distress - *Routine Respiratory Exam Present: CTA bilaterally - *Routine Cardiovascular Exam Present: RRR - *Routine Abdominal Exam Present: soft, normoactive bowel sounds. Absent: tenderness - *Routine Extremities Exam Absent: cyanosis, clubbing, edema - *Routine Skin Exam Present: warm. Absent: rash - *Routine Neurological Exam Present: alert, oriented X3 Assessment and Plan (1) Presence of permanent cardiac pacemaker Status: Acute Category: Medical Code(s): Z95.0 - Presence of cardiac pacemaker (2) Elevated troponin Status: Acute Category: Medical Code(s): R77.8 - Other specified abnormalities of plasma proteins (3) Pneumonia due to COVID-19 virus Status: Acute Category: Medical Code(s): U07.1 - COVID-19; J12.82 - Pneumonia due to coronavirus disease 2019 (4) Respiratory failure with hypoxia Status: Acute Qualifiers: Chronicity: acute Qualified Code(s): J96.01 - Acute respiratory failure with hypoxia Category: Medical Code(s): J96.91 - Respiratory failure, unspecified with hypoxia (5) COVID-19 Status: Acute Category: Medical Code(s): U07.1 - COVID-19 (6) Dehydration Status: Acute Category: Medical Code(s): E86.0 - Dehydration (7) Aortic valve replaced Status: Acute Category: Surgical Code(s): Z95.2 - Presence of prosthetic heart valve - Assessment and plan all Dx Assessment and Plan for all problems:: Cardiology has seen the patient and feels she will need an ischemic work-up once discharged on an outpatient basis. They did order an echo and it showed an EF of 55% with impaired LV relaxation. She had mild aortic insufficiency and an elevated right ventricular systolic pressure 43 mmHg. We will continue Covid protocol and cardiology will follow. <Elia Singer - Last Filed: 04/19/21 13:28> Internal Medicine - PN: Subj *Date: 04/19/21 *Time: 13:27 Exam Vital signs and Labs for Last 24 Hours: Temp Pulse Resp BP Pulse Ox 97.6 F 66 18 119/66 91 L 04/19/21 12:00 04/19/21 12:00 04/19/21 1
[2021-04-20] VITALS (10 sets, daily range): BP systolic 114–134; BP diastolic 51–76; PULSE 76–90; RESP 16–20; TEMP 36.4–37.1; O2SAT 79–96; BMI 29.2
--- NOTE | 2021-04-20 09:04 | HMH.ACPN2 ---
<Doris Nielson - Last Filed: 04/20/21 09:04> Internal Medicine - PN: Subj *Date: 04/20/21 *Time: 09:04 Interval history: Patient states she feels a little better today. She denies any shortness of breath but still has a cough. She slept off and on throughout the night. She does not want any breakfast this morning. She denies any pain. Exam Vital signs and Labs for Last 24 Hours: Temp Pulse Resp BP Pulse Ox 98.3 F 83 18 132/69 93 L 04/20/21 07:40 04/20/21 07:40 04/20/21 07:40 04/20/21 07:40 04/20/21 07:40 I & O for Last 24 hours: Intake & Output 04/17/21 04/18/21 04/19/21 04/20/21 11:59 11:59 11:59 11:59 Intake Total 360 / 360 540 / 540 120 / 120 Balance 360 / 360 540 / 540 120 / 120 Weight 154 lb 1.65 oz 155 lb 6.814 oz 155 lb 3.287 oz Microbiology Reports for the Last 24 Hours: Microbiology 04/17/21 15:58 Blood Blood Culture - Preliminary NO GROWTH AFTER 48 HOURS 04/17/21 15:58 Blood Blood Culture - Preliminary NO GROWTH AFTER 48 HOURS - Constitutional no acute distress - *Routine Respiratory Exam Present: rhonchi, wheezes - *Routine Cardiovascular Exam Present: RRR - *Routine Abdominal Exam Present: soft, normoactive bowel sounds. Absent: tenderness - *Routine Extremities Exam Absent: cyanosis, clubbing, edema - *Routine Skin Exam Present: warm. Absent: rash - *Routine Neurological Exam Present: alert, oriented X3 Assessment and Plan (1) Pneumonia due to COVID-19 virus Status: Acute Category: Medical Code(s): U07.1 - COVID-19; J12.82 - Pneumonia due to coronavirus disease 2019 (2) Presence of permanent cardiac pacemaker Status: Acute Category: Medical Code(s): Z95.0 - Presence of cardiac pacemaker (3) Elevated troponin Status: Acute Category: Medical Code(s): R77.8 - Other specified abnormalities of plasma proteins (4) Respiratory failure with hypoxia Status: Acute Qualifiers: Chronicity: acute Qualified Code(s): J96.01 - Acute respiratory failure with hypoxia Category: Medical Code(s): J96.91 - Respiratory failure, unspecified with hypoxia (5) COVID-19 Status: Acute Category: Medical Code(s): U07.1 - COVID-19 (6) Dehydration Status: Acute Category: Medical Code(s): E86.0 - Dehydration (7) Aortic valve replaced Status: Acute Category: Surgical Code(s): Z95.2 - Presence of prosthetic heart valve - Assessment and plan all Dx Assessment and Plan for all problems:: Continue current care. Oxygen saturation is stable on 3 L. <Elia Singer - Last Filed: 04/20/21 11:06> Internal Medicine - PN: Subj *Date: 04/20/21 *Time: 11:05 Exam Vital signs and Labs for Last 24 Hours: Temp Pulse Resp BP Pulse Ox 98.6 F 84 17 126/69 87 L 04/20/21 10:58 04/20/21 10:58 04/20/21 10:58 04/20/21 10:58 04/20/21 10:58 Laboratory Results - last 24 hr 04/20/21 08:46: Sodium 137, Potassium 3.9, Chloride 106, Carbon Dioxide 27, Anion Gap 7.9, BUN 25 H, Creatinine 0.80, Estimated Creat Clear 52, Estimated GFR 70, Est GFR ( Amer) 84 D, Glucose 130 H, Calcium 6.3 L, Total Bilirubin 0.5, AST 102 H, ALT 37, Alkaline Phosphatase 64, Total Protein 5.8 L, Albumin 2.7 L, Globulin 3.1, Albumin/Globulin Ratio 0.9 L I & O for Last 24 hours: Intake & Output 04/17/21 04/18/21 04/19/21 04/20/21 11:59 11:59 11:59 11:59 Intake Total 360 / 360 540 / 540 120 / 120 Balance 360 / 360 540 / 540 120 / 120 Weight 154 lb 1.65 oz 155 lb 6.814 oz 155 lb 3.287 oz Microbiology Reports for the Last 24 Hours: Microbiology 04/17/21 15:58 Blood Blood Culture - Preliminary NO GROWTH AFTER 48 HOURS 04/17/21 15:58 Blood Blood Culture - Preliminary NO GROWTH AFTER 48 HOURS Assessment and Plan (1) Pneumonia due to COVID-19 virus Status: Acute Category: Me
[2021-04-20 09:10] LABS: Chloride 106 mmol/L (98-107); Potassium 3.9 mmoL/L (3.5-5.1); Sodium 137 mmol/L (136-145)
[2021-04-20 09:12] LABS: Blood Urea Nitrogen 25 mg/dl (7-17); Creatinine Clearance Estimated 52 mL/min (50-200); Estimated Glomerular Filt Rate 70 ml/min (>60); GFR (African American) 84 ML/MIN (>60)
[2021-04-20 09:13] LABS: Alanine Aminotransferase 37 U/L (12-78); Albumin Level 2.7 g/dl (3.5-5.0); Albumin/Globulin Ratio 0.9 (1.1-1.8); Alkaline Phosphatase 64 U/L (38-126); Anion Gap 7.9 mEq/L (5-15); Aspartate Amino Transferase 102 U/L (14-36); Bilirubin,Total 0.5 mg/dl (0.2-1.3); Calcium 6.3 mg/dl (8.4-10.2); Carbon Dioxide 27 mmol/L (22.0-30.0); Globulin 3.1 g/dL (1.3-3.2); Glucose 130 mg/dl (74-100); Total Protein,Serum 5.8 g/dl (6.3-8.2)
--- NOTE | 2021-04-20 09:55 | HMH.OTEV ---
OT Inpatient Evaluation Rehab OT IP Evaluation Start: 04/20/21 08:59 Freq: ONCE Status: Complete Protocol: Document 04/20/21 09:45 ARSHOYT (Rec: 04/20/21 09:54 [facility] [id number]) Rehab OT IP Assessment Subjective History Pt oriented x 2 on arrival. Pt agreeable to engage in therapy evaluation. Pt was confused with place. She reports she does not believe she has COVID. Pt was admitted via ED on 04/17/21 due to SOB secondary to COVID. The following information was copied from pt's Physician history and physical report: Ms. Moran is a 75-year-old female with a history of hypothyroidism, rheumatic fever, recent permanent pacemaker placement on 2020-12 and a TAVR 03/01/2021 who presented to [facility] emergency room with progressive shortness of breath and cough. Patient is very vague with scribing her symptoms. We'll continue with routine Covid orders. He remains on Levaquin.With evaluation in the emergency room she was found to be afebrile white blood cell count was 10,300She was started on Rocephin and Zithromax And given IV dexamethasone IV fluid bolus along with potassium.CTA of the chest showed no evidence of pulmonary embolism and mild multifocal airspace disease compatible with infection. She was then admitted for further evaluation and treatment. This a.m. patient denies chest pain and shortness of breath. She states she has no appetite and has been unable to eat the last few days. She describes everything is tasting salty.
--- NOTE | 2021-04-20 10:02 | SW/DCPLANNER ---
Addendum entered by Zuri Garcia 04/23/21 13:22: Terri with [facility] has stated that services will begin for this patient. Addendum entered by Zuri Garcia 04/20/21 10:24: Selena has stated that portable O2 + home O2 will be delivered. Original Note: The plan is for this patient to return home with home health service and home O2. Dr Singer stated this AM that patient could potentially discharge later today or over the weekend. I will set patient up with [facility] once medically stable for discharge. I have faxed patient information/order to [facility] for home O2 + portable tank. I will follow up with [facility] (once faxed at discharge) and [facility] once patient information/order is reviewed.
--- NOTE | 2021-04-20 11:08 | HMH.PTEV ---
Physical Therapy Evaluation Rehab PT IP Evaluation Start: 04/20/21 08:58 Freq: ONCE Status: Active Protocol: Document 04/20/21 11:03 PHORNE (Rec: 04/20/21 11:07 PHORNE [id number]) Subjective/History History History 75 yowf adm to [facility] with COVID- 19 and PNA. She reports she lives with her sister and her niece, no steps to enter the home and she is independent with all mobility at baseline without an AD. Subjective Subjective She reports feeling weak and mildly nauseated this am. How did I get that COVID? Rehab PT IP Eval Objective Appearance Patient Behavior Appropriate Patient Orientation Person,Place,Month Difficulty following instructions none Speech Pattern Clear Ambulation Patient Able to Ambulate Yes Ambulation Observation IP General Gait Pattern Observation Shuffling Step Ambulation Distance (feet) 10 Ambulation Assistive Device None Ambulation Ability Contact Guard/Hand Hold Balance Ability to Arise Able, uses arms to help Sitting Balance Steady, safe Standing Balance Steady, wide stance Dynamic Sitting Balance Ability Good Dynamic Standing Balance Ability Fair Transfers Bed Transfer Ability Contact Guard/Hand Hold Chair Transfer Ability Contact Guard/Hand Hold Sit to Stand Bed Transfer Ability Contact Guard/Hand Hold Sit to Stand Chair Transfer Ability Contact Guard/Hand Hold ROM All Extremities PT ROM Status WFL Rehab PT IP prob,goals,plan Problems Date of Evaluation: 04/20/21 PT IP Problems Bed Mobility,Transfers,Gait, Self care Rehab Potential Rehab Potential Good Plan PT Intervention Plan Bed Mobility,Transfers,Gait, Self care,Therapeutic Exercise PT Plan Frequency BID Duration LOS Discharge Goals Bed Transfer Ability Supervision/Stand by Sit to Stand Chair Transfer Ability Supervision/Stand by Ambulation Assistive Device None Ambulation Distance (feet) 30 Discharge Plan PT Discharge Plan Pt appears appropriate to return home once medically stable barring any set-backs at this point. Mild decrease in oxygen saturation to mid 80 's with ambulation this am. Pt would require increased
--- NOTE | 2021-04-20 18:26 | PC.NURSE ---
Pt has slept most of this shift. Pt has remained on 3L NC, diminished breath sounds t/o all lung pickens noted. Productive cough noted this shift, unable to collect a specimen d/t pt spitting it in the trashcan. Order placed for sputum culture and speci cup at bedside for next time pt is able to produce sputum. Pt has had a very poor appetite this shift and has refused all meals even after encouragement. Pt also has been reminded multiple times to place nasal cannula back on, when pt takes nasal cannula off, o2 sats have dropped as low as 79%. Active bowel sounds in all 4 quads, patient has been incontinent of bowels x1 this shift. Pt continent of urine and has been a x1 assist to and from the bathroom w/ steady gait and balance. Family updated on POC today and of possible discharge tomorrow. No other acute changes or complaints, will continue to monitor.
[2021-04-21] VITALS: BP 124/59; PULSE 86; PULSE 90; RESP 24; TEMP 36.4; O2SAT 87
--- NOTE | 2021-04-21 00:46 | PC.NURSE ---
Addendum entered by Nichol Warren RN 04/21/21 05:53: Patient has gotten better at keeping her oxygen on. Patient is currently on 4LNC and maintaining oxygen levels in the 90-93% range. Patient has been reeducated on why she needs to wear her oxygen. Patient has been restless throughout the night by tossing and turning in bed and pulling her oxygen out of her nose. This RN will continue to monitor. Original Note: Patient has refused to wear oxygen this RN's shift thus far. Patient has required frequent interventions in regards to wearing her oxygen. Patient still continues to not consistently wear her NC. Patient desats anywhere from 80-89% after removing her oxygen. Patient is alert and oriented to her name and . This RN will continue to monitor.
[2021-04-21 04:00] VITALS: BP 140/77; PULSE 90; RESP 18; TEMP 36.6; O2SAT 91
[2021-04-21 05:00] VITALS: BMI 29.2
[2021-04-21 07:22] LABS: Chloride 109 mmol/L (98-107)
[2021-04-21 07:23] LABS: Potassium 3.3 mmoL/L (3.5-5.1); Sodium 141 mmol/L (136-145)
[2021-04-21 07:25] LABS: Alanine Aminotransferase 42 U/L (12-78); Aspartate Amino Transferase 113 U/L (14-36); Blood Urea Nitrogen 23 mg/dl (7-17); Creatinine Clearance Estimated 52 mL/min (50-200); Estimated Glomerular Filt Rate 70 ml/min (>60); GFR (African American) 84 ML/MIN (>60)
[2021-04-21 07:26] LABS: Albumin Level 2.7 g/dl (3.5-5.0); Albumin/Globulin Ratio 0.9 (1.1-1.8); Alkaline Phosphatase 71 U/L (38-126); Anion Gap 9.3 mEq/L (5-15); Bilirubin,Total 0.7 mg/dl (0.2-1.3); Calcium 6.4 mg/dl (8.4-10.2); Carbon Dioxide 26 mmol/L (22.0-30.0); Globulin 3.1 g/dL (1.3-3.2); Glucose 120 mg/dl (74-100); Total Protein,Serum 5.8 g/dl (6.3-8.2)
--- NOTE | 2021-04-21 07:57 | PC.NURSE ---
Pt weaned back down to 3L NC. 92% o2 sat at this time
[2021-04-21 07:59] VITALS: O2SAT 92
[2021-04-21 08:00] VITALS: BP 152/81; PULSE 83; PULSE 89; RESP 20; TEMP 36.6; O2SAT 90; O2SAT 93
--- NOTE | 2021-04-21 10:08 | HMH.ACPN2 ---
Internal Medicine - PN: Subj *Date: 04/21/21 *Time: 10:08 Interval history: Doing well except sometime refusing to wear oxygen and sats drop to mid 80s. Some cough that is mostly nonproductive. Denies pain. Appetite remains poor. Exam Vital signs and Labs for Last 24 Hours: Temp Pulse Resp BP Pulse Ox 97.8 F 83 20 152/81 H 93 L 04/21/21 08:00 04/21/21 08:00 04/21/21 08:00 04/21/21 08:00 04/21/21 08:00 Laboratory Results - last 24 hr 04/21/21 05:00: Sodium 141, Potassium 3.3 L, Chloride 109 H, Carbon Dioxide 26, Anion Gap 9.3, BUN 23 H, Creatinine 0.80, Estimated Creat Clear 52, Estimated GFR 70, Est GFR ( Amer) 84, Glucose 120 H, Calcium 6.4 L, Total Bilirubin 0.7, AST 113 H, ALT 42, Alkaline Phosphatase 71, Total Protein 5.8 L, Albumin 2.7 L, Globulin 3.1, Albumin/Globulin Ratio 0.9 L I & O for Last 24 hours: Intake & Output 04/18/21 04/19/21 04/20/21 04/21/21 11:59 11:59 11:59 11:59 Intake Total 360 / 360 540 / 540 120 / 120 2210 / 2210 Balance 360 / 360 540 / 540 120 / 120 2210 / 2210 Weight 154 lb 1.65 oz 155 lb 6.814 oz 155 lb 3.287 oz 154 lb 8.705 oz - Constitutional no acute distress Comments: Wearing O2 - *Routine Respiratory Exam Present: other (generally diminished BS o/w clear) - *Routine Cardiovascular Exam Present: RRR - *Routine Abdominal Exam Present: soft, normoactive bowel sounds. Absent: tenderness, distended - *Routine Extremities Exam Absent: edema Assessment and Plan (1) Pneumonia due to COVID-19 virus Status: Acute Category: Medical Code(s): U07.1 - COVID-19; J12.82 - Pneumonia due to coronavirus disease 2019 (2) Respiratory failure with hypoxia Status: Acute Qualifiers: Chronicity: acute Qualified Code(s): J96.01 - Acute respiratory failure with hypoxia Category: Medical Code(s): J96.91 - Respiratory failure, unspecified with hypoxia (3) Presence of permanent cardiac pacemaker Status: Acute Category: Medical Code(s): Z95.0 - Presence of cardiac pacemaker (4) Elevated troponin Status: Acute Category: Medical Code(s): R77.8 - Other specified abnormalities of plasma proteins (5) Dehydration Status: Acute Category: Medical Code(s): E86.0 - Dehydration (6) S/P TAVR (transcatheter aortic valve replacement) Status: Acute Category: Surgical Code(s): Z95.2 - Presence of prosthetic heart valve - Assessment and plan all Dx Assessment and Plan for all problems:: She has been stable on 3 liters O2 since admission. PT/OT evals noted and felt to be safe for discharge home. She is otherwise stable for discharge today with home O2 that has been arranged. She has a sister and neice to watch after her at home. She will f/u via telehealth visit in 3 days.
--- NOTE | 2021-04-22 22:43 | HMH.DCSUM ---
General - General Admission date:: 04/17/21 <Elia Singer - 06/03/21 09:37> 04/17/21 <Doris Nielson - 04/22/21 22:50> Discharge date: 04/21/21 <Doris Nielson - 04/22/21 22:50> HPI HPI: Ms. Moran is a 75-year-old female with a history of hypothyroidism, rheumatic fever, recent permanent pacemaker placement on 2020-12-22 and a TAVR 03/01/2021 who presented to [facility] emergency room with progressive shortness of breath and cough. Patient is very vague with scribing her symptoms. We'll continue with routine Covid orders. She remains on Levaquin. With evaluation in the emergency room she was found to be afebrile white blood cell count was 10,300. She was started on Rocephin and Zithromax And given IV dexamethasone IV fluid bolus along with potassium. CTA of the chest showed no evidence of pulmonary embolism and mild multifocal airspace disease compatible with infection. She was then admitted for further evaluation and treatment. This a.m. patient denies chest pain and shortness of breath. She states she has no appetite and has been unable to eat the last few days. She describes everything is tasting salty. To note patient did not have the Covid vaccine. <Doris Nielson - 04/22/21 22:50> Hospital Course Hospital Course: The patient's Covid test was positive. She was admitted and started on Covid protocol. Cardiology was also consulted. They ordered an echo and felt that her elevated troponin on admission was most likely from demand ischemia from her Covid pneumonia. They felt she would need an outpatient ischemic evaluation completed once discharged with her primary coat operator insulator, Dr. Cyr in [place]. The patient's pacemaker was interrogated and she had 3 episodes of paroxysmal atrial fibrillation with which lasted less than 4 minutes. A beta-leticia was recommended and as she was currently on carvedilol, this was continued. The patient's echo showed an EF of 55% and there was a stented aortic valve without significant aortic outflow obstruction. Her right ventricular systolic pressure was elevated at 43 mmHg. Cardiology felt the patient should be restarted on her Lasix due to her pulmonary hypertension. The patient began feeling better. She was only mildly short of breath but continued to remain weak. She was able to sleep and eat. Her oxygen saturations were stable on 3 L. PT and OT were ordered and they felt the patient could return home once medically stable. By 04/21/2021 she was doing well other than oxygen sats dropping in the mid 80s when she refused to wear her oxygen. She was stable for discharge with home oxygen and she has a sister and niece to watch after her at home. She will follow-up via telehealth with Dr. Singer. <Doris Nielson - 04/22/21 22:50> Objective Vital signs: Temp Pulse Resp BP Pulse Ox 97.8 F 83 20 152/81 H 93 L 04/21/21 08:00 04/21/21 08:00 04/21/21 08:00 04/21/21 08:00 04/21/21 08:00 <Elia Singer - 06/03/21 09:37> Temp Pulse Resp BP Pulse Ox 97.8 F 83 20 152/81 H 93 L 04/21/21 08:00 04/21/21 08:00 04/21/21 08:00 04/21/21 08:00 04/21/21 08:00 <Doris Nielson - 04/22/21 22:50> Narrative: - Constitutional no acute distress Comments: Wearing O2 - *Routine Respiratory Exam Present: other (generally diminished BS o/w clear) - *Routine Cardiovascular Exam Present: RRR - *Routine Abdominal Exam Present: soft, normoactive bowel sounds. Absent: tenderness, distended - *Routine Extremities Exam Absent: edema <Doris Nielson - 04/22/21 22:50> DS: Diagnosis - Discharge Diagnosis (1) Pneumonia due to COVID-19 virus Status: Acute (2) Respiratory failure with hypoxia Status: Acute (3) Presence of permanent cardiac pacemaker Status: Acute (4) Elevated troponin Status: Acute (5) Dehydration Status: Acute (6) S/P TAVR (transcatheter aortic valve re
== END 2021-04-21 10:58 | disposition home health service (06) | DRG 177 ==
LOC: ER 15:35 → ICU 19:09
PROVIDERS: Nurse Practitioner Family; Admitting Provider Family Medicine; Emergency Provider Emergency Medicine; PCP Family Medicine; Visit Provider Family Medicine
DX: U07.1 COVID-19 (principal); J12.82 Pneumonia due to coronavirus disease 2019; J96.01 Acute respiratory failure with hypoxia; I24.8 Other forms of acute ischemic heart disease; E03.9 Hypothyroidism, unspecified; Z95.0 Presence of cardiac pacemaker; E78.5 Hyperlipidemia, unspecified; I10 Essential (primary) hypertension; E86.0 Dehydration; Z95.2 Presence of prosthetic heart valve
CPT/HCPCS: 36415; 71045; 71275; 74176; 80053; 80061; 82728; 83605; 84484; 85007; 85025; 85378; 85610; 85651; 85730; 86140; 87040; 93005; 93306; 94761; 96365; 96367; 96375; 97162; 97166; 97530; 99283; 99285; C9803; J0456; J2405; Q9967; U0003; U0005

== ENCOUNTER → 2022-02-20 11:42 | Outpatient (CLI) | payer MEDICARE, MEDICAID, SELFPAY | PROVIDERS: PCP Family Medicine; Visit Provider Internal Medicine Cardiovascular Disease | DX: I73.9 Peripheral vascular disease, unspecified (principal); R06.09 Other forms of dyspnea; Z95.0 Presence of cardiac pacemaker; Z95.2 Presence of prosthetic heart valve | CPT/HCPCS: 78452; 93017; 93306; 93923; A9502; J2785 ==

== ENCOUNTER 2022-02-25 01:13 | Observation (INO) | payer MEDICARE, MEDICAID, SELFPAY ==
[2022-02-25] VITALS (23 sets, daily range): BP systolic 80–189; BP diastolic 40–98; PULSE 60–115; RESP 15–24; TEMP 36.6–37.1; O2SAT 90–100; BMI 27.8; BMI 27.9
--- NOTE | 2022-02-25 | IR_ITS ---
APPROVED REPORT Patient Location: Inpatient PROCEDURES Left heart catheterization Left ventriculogram Selective coronary angiogram Informed consent was obtained prior to the procedure. COMPLICATIONS None Estimated Blood Loss: Less than 10 mls TECHNIQUE One percent lidocaine used to anesthetize the right anterior aspect of the wrist. The right radial artery was accessed via the Seldinger technique. A 6 Spanish sheath was placed in the right radial artery. 2.5 mg of verapamil, 800 mcg of nitroglycerin, 1mg Lidocaine and 5000 U Heparin were given through the arterial sheath. The papa catheter was also used to perform left heart catheterization, left ventriculogram and selective coronary angiogram. At the end of the procedure the sheath was removed good hemostasis was achieved using Traclet band, patient was transferred to the postop holding area in stable condition. ANGIOGRAPHIC RESULTS The left main artery Is patent The left anterior descending artery Widely patent with minimal luminal irregularities The circumflex artery Widely patent with minimal luminal irregularities The right coronary artery Is a large dominant and originates in the left coronary cusp. There is MARK-3 flow throughout the vessel with diffuse 10 to 20% luminal regularities The GOMEZ ventriculogram reveals Hyperdynamic at 80% The left ventricular end-diastolic pressure 25 mmHg IMPRESSION Patent coronary arteries Hyperdynamic ventricle Elevated LVEDP Elevated troponin is secondary to demand ischemia with hyperdynamic ventricle PLAN 1. Aggressive medical management which should include beta-blockers and or diltiazem or verapamil 2. Continue with risk factor modification 3. Aggressive rate controlling medicine Electronically signed by : Samuel Lawton MD 02/25/2022 12:57:56
--- NOTE | 2022-02-25 01:15 | XR_ITS ---
PROCEDURE INFORMATION: Exam: XR Chest Exam date and time: 02/25/2022 1:57 AM Age: 76 years old Clinical indication: Sternal or substernal pain; Prior surgery; Surgery date: 6+ months; Surgery type: Pacemaker; Additional info: Chest pain TECHNIQUE: Imaging protocol: Radiologic exam of the chest. Views: 1 view. COMPARISON: CR XR CHEST PORTABLE 04/17/2021 2:02 PM FINDINGS: Tubes, catheters and devices: Left-sided chest wall pacing device. Lungs: Nonspecific bibasilar opacities, favoring atelectasis or pneumonia. Probable biapical scarring. Pleural spaces: No pleural effusion. No pneumothorax. Heart/Mediastinum: Unremarkable cardiomediastinal silhouette. Vasculature: Vascular stent projecting over mediastinum. Bones/joints: No acute osseous findings. IMPRESSION: Nonspecific bibasilar opacities, favoring atelectasis or pneumonia. Recommend imaging follow-up until complete resolution.
--- NOTE | 2022-02-25 01:15 | ECG_ITS ---
APPROVED REPORT Exam: Resting ECG HR:65 bpm ECG Measurements Heart Rate 65 AXES QRSd 130 QRS 101 QT 392 T -44 QTc 403 Conclusion Unusual P wave morphology with dissociation with ventricular [id number] AV block? Paced rhythm noted RIGHT AXIS DEVIATION [QRS AXIS > 100] RIGHT BUNDLE BRANCH BLOCK [120+ ms QRS DURATION, UPRIGHT V1, 40+ ms S IN I/aVL/V4/V5/V6] ST DEVIATION AND MODERATE T-WAVE ABNORMALITY, CONSIDER ANTEROLATERAL ISCHEMIA [-0.1+ mV T-WAVE IN V3-V6] ABNORMAL ECG UNCONFIRMED REPORT Electronically signed by : Khang Peter MD 02/25/2022 16:38:39
--- NOTE | 2022-02-25 01:17 | HMH.EDGENADL ---
Discharge Plan Disposition Patient Disposition: Admitted as Observation Condition: Fair Clinical Impressions Clinical Impression: Chest pain, Vomiting Discharge ED Provider: Kalli Slaughter Adult HPI General Chief complaint: Chest Pain Stated complaint: Chest Pain Time Seen by Provider: 02/25/22 01:15 Mode of Arrival: Ambulatory Source of Information: Patient and Relative Limitations: No Limitations History of Present Illness HPI narrative: 76-year-old female presenting to the emergency department with chest pain, headache. Symptoms started earlier this evening. The chest pain is on the left side, anterior. Described as sharp. Nothing seems to make it better or worse. Has been constant since onset. She was just sitting at home when the pain started. No radiation to the jaw, arm, back. No associated nausea or diaphoresis. She also is a headache that is located in the front, squeezing pain. No vision changes. No speech difficulty. Daughter says she has been complaining of headache on and off for the last few days. No known sick exposures. No fevers, chills, nausea, vomiting. Cardiac history includes pacemaker and aortic valve replacement. She follows with [facility]. Takes Eliquis, aspirin, Plavix. Related Data Home Medications Medication Instructions Recorded Confirmed atorvastatin 10 mg tablet 40 mg PO HS Cholesterol 11/20/20 02/25/22 carvedilol 3.125 mg tablet 3.125 mg PO BID High blood pressure 04/17/21 02/25/22 furosemide 40 mg tablet 40 mg PO DAILY Fluid 04/18/21 02/25/22 isosorbide dinitrate 30 mg tablet 10 mg PO TID Heart health 04/18/21 02/25/22 levothyroxine 88 mcg tablet 88 mcg PO DAILY THYROID 04/18/21 02/25/22 losartan 25 mg tablet 25 mg PO BID High blood pressure 04/18/21 02/25/22 apixaban 5 mg tablet (Eliquis) 5 mg PO BID Blood thinner 02/08/22 02/25/22 Allergies Allergy/AdvReac Type Severity Reaction Status Date / Time No Known Allergies Allergy Verified 02/08/22 10:49 [facility] Medical History HTN (hypertension) Hx of rheumatic fever Pacemaker Surgical History Aortic valve replaced Family History Sister Family history of myocardial infarction Social History Smoking Status: Former smoker alcohol intake: never substance use type: denies use current occupational status: retired Travel in the last 8 weeks: None household members: family housing: house caffeine: Yes ROS Obtained: Yes All systems reviewed & no additional complaints except as documented Constitutional Constitutional: Reports fatigue, Denies fever(s), Reports headache(s) and Reports malaise Eyes Eyes: Denies blurry vision and Denies loss of vision ENT Ears, Nose, Mouth, and Throat: Reports headache(s) and Reports nasal congestion Cardiovascular Cardiovascular: Reports chest pain, Reports chest pain at rest, Denies dyspnea, Denies lightheadedness and Denies syncope Respiratory Respiratory: Denies cough, Denies dyspnea and Denies wheezing Gastrointestinal Gastrointestingal: Denies abdominal pain, nausea or vomiting Musculoskeletal Musculoskeletal: Denies numbness and Denies tingling Neurologic Neurologic: Reports headache(s), Denies loss of vision, Denies numbness, Denies syncope and Denies tingling Endocrine Endocrine: Reports fatigue Allergic/Immunologic Allergic/Immunologic: Denies wheezing Physical Exam General General appearance: alert, in no apparent distress and other (Pleasantly confused) Head Head exam: atraumatic and normocephalic Eye Eye exam: Present normal appearance and EOMI; Absent scleral icterus ENT ENT exam: Present normal exam and normal oropharynx Neck Neck exam: Present normal inspection and full ROM Chest Chest inspection: Present normal inspection, sy
[2022-02-25 01:28] LABS: Basophils # 0.1 K/mm3 (0-0.2); Basophils % 0.5 % (0.1-2.0); Eosinophils # 0.3 K/mm3 (0.0-0.4); Hematocrit 37.7 % (37.0-47.0); Hemoglobin 12.2 g/dL (12.2-16.2); Lymphocytes # 0.7 K/mm3 (0.7-4.5); Lymphocytes % 6.4 % (10-50); Mean Corpuscular HGB Conc 32.4 g/dL (31.8-35.4); Mean Corpuscular Hemoglobin 29.1 pg (27.0-31.2); Mean Corpuscular Volume 89.9 fl (81-99); Mean Platelet Volume 8.5 fl (7.4-10.4); Monocytes # 0.3 K/mm3 (0.1-1.0); Monocytes % 2.5 % (1.7-9.3); Neutrophils # 9.1 K/mm3 (1.8-7.8); Neutrophils % 87.6 % (37.0-80.0); Platelet Count 166 K/mm3 (142-424); Red Blood Count 4.19 M/mm3 (4.20-5.40); Red Cell Distribution Width 13.9 % (11.5-17.5); White Blood Count 10.3 K/mm3 (4.8-10.8)
[2022-02-25 01:30] LABS: MANUAL DIFFERENTIAL MANUAL DIFFERENTIAL (MANUAL DIFF)
[2022-02-25 01:42] LABS: Anion Gap 16.4 mEq/L (5-15); Blood Urea Nitrogen 21 mg/dl (7-17); Calcium 8.4 mg/dl (8.4-10.2); Carbon Dioxide 22 mmol/L (22.0-30.0); Chloride 101 mmol/L (98-107); Creatinine Clearance Estimated 49 mL/min (50-200); Estimated Glomerular Filt Rate 54 ml/min (>60); GFR (African American) 65 ML/MIN (>60); Glucose 151 mg/dl (74-100); Lymphocytes % 12 % (10-50); Monocytes % 1 % (2-9); Neutrophils % 78 % (42-76); Platelet Estimate Normal; Potassium 3.4 mmoL/L (3.5-5.1); RBC Morphology Normal; Sodium 136 mmol/L (136-145); Total Cells Counted 100; Toxic Granulation 1+
[2022-02-25 01:53] LABS: Troponin I 0.02 ng/ml (0.00-0.034)
--- NOTE | 2022-02-25 01:53 | PC.NURSE ---
family given an update on pt and educated on expected wait times
--- NOTE | 2022-02-25 02:16 | CT_ITS ---
PROCEDURE INFORMATION: Exam: CT Head Without Contrast Exam date and time: 02/25/2022 2:31 AM Age: 76 years old Clinical indication: Pain; Headache not specified; Additional info: Headache, vomiting, ich suspected TECHNIQUE: Imaging protocol: Computed tomography of the head without contrast. Radiation optimization: All CT scans at this facility use at least one of these dose optimization techniques: automated exposure control; mA and/or kV adjustment per patient size (includes targeted exams where dose is matched to clinical indication); or iterative reconstruction. COMPARISON: US THYROID 09/15/2020 1:11 PM FINDINGS: Brain: No hemorrhage. No mass effect. Cerebral ventricles: No ventriculomegaly. Paranasal sinuses: No fluid levels. Mastoid air cells: Visualized mastoid air cells are well aerated. Bones/joints: No acute fracture. Soft tissues: The visualized soft tissue is grossly unremarkable. IMPRESSION: No evidence of acute intracranial hemorrhage. If symptoms persist consider further evaluation with MR.
--- NOTE | 2022-02-25 02:33 | PC.NURSE ---
PATIENT TRANSPORTED TO CT.
[2022-02-25 02:40] LABS: Coronavirus 19, PCR Not Detected (NotDetected); Influenza A, PCR Not Detected (NotDetected); Influenza B, PCR Not Detected (NotDetected)
--- NOTE | 2022-02-25 02:43 | PC.NURSE ---
PATIENT BACK FROM CT SCAN.
--- NOTE | 2022-02-25 03:11 | PC.NURSE ---
MD at bedside and s/w pt & family
--- NOTE | 2022-02-25 03:12 | PC.NURSE ---
Repeat EKG done at 0252
--- NOTE | 2022-02-25 03:25 | ECG_ITS ---
APPROVED REPORT Exam: Resting ECG HR:68 bpm ECG Measurements Heart Rate 68 AXES [place] 177 P 123 QRSd 150 QRS -53 QT 472 T 76 QTc 490 Conclusion ELECTRONIC ATRIAL PACEMAKER ELECTRONIC VENTRICULAR PACEMAKER ABNORMAL RHYTHM ECG UNCONFIRMED REPORT Electronically signed by : Khang Peter MD 02/25/2022 16:36:33
--- NOTE | 2022-02-25 03:25 | PC.NURSE ---
Dr. Rome kay
--- NOTE | 2022-02-25 03:49 | PC.NURSE ---
Pt O2 89% notified
--- NOTE | 2022-02-25 04:07 | PC.NURSE ---
House notified of pt acceptance by Dr. Peter
--- NOTE | 2022-02-25 04:40 | PC.NURSE ---
PT ARRIVED TO FLOOR VIA WHEEL CHAIR AT THIS TIME
[2022-02-25 04:51] LABS: Troponin I 0.04 ng/ml (0.00-0.034)
--- NOTE | 2022-02-25 07:11 | PC.NURSE ---
LATE entry - Pt new admit for chest pain. Pt denies any chest pain at this time. Pt is paced on tele. Checking serial troponins and cardiology consult for this AM. Call light in reach.
--- NOTE | 2022-02-25 07:28 | HMH.PHAINT1 ---
Pharmacy Intervention Comments: Home medication reconciliation completed using outpatient pharmacy fill history.
--- NOTE | 2022-02-25 08:01 | PC.NURSE ---
Notified emmanuel stewarding supervisor to notify nurse to hold eliquis until pt has been consulted on for heart cath
--- NOTE | 2022-02-25 08:03 | PC.NURSE ---
LATE ENTRY - At 0700, pt had sudden onset of vomiting. Pt states she wasnt even feeling nauseous before, it just happened. Pt denies chest pain. Medicated per JUL. At 0710 pt c/o of back pain. Rounding provider notified of pt symptoms per dayshift RN.
--- NOTE | 2022-02-25 08:19 | EXP.HP ---
History of Present Illness *Admission Date: 02/24/22 *Reason for visit:: Chest pain *History of present illness: HPI narrative as per [facility] ER: 76-year-old female presenting to the emergency department with chest pain, headache.? Symptoms started earlier this evening.? The chest pain is on the left side, anterior.? Described as sharp.? Nothing seems to make it better or worse.? Has been constant since onset.? She was just sitting at home when the pain started.? No radiation to the jaw, arm, back.? No associated nausea or diaphoresis.? She also is a headache that is located in the front, squeezing pain.? No vision changes.? No speech difficulty.? Daughter says she has been complaining of headache on and off for the last few days.? No known sick exposures.? No fevers, chills, nausea, vomiting.? Cardiac history includes pacemaker and aortic valve replacement.? She follows with [facility].? Takes Eliquis, aspirin, Plavix. Medical Decision Narrative: In summary this is a 76-year-old female with history of aortic valve replacements, cardiac pacemaker, COVID with cognitive impairment, presenting to the emergency department with chest pain and headache.? Patient clinically stable on arrival.? Hypertensive.? Other vital signs within normal limits.? Will obtain CBC, CMP, chest x-ray, EKG, troponin profile. Initial EKG shows an irregularly paced rhythm. Initial laboratory results are reassuring.? Glucose and electrolytes within normal limits.? No anemia.? No leukocytosis. Initial troponin is 0.02.? Will obtain 2-hour repeat troponin. On reassessment, patient is having persistent vomiting, despite Zofran.? Concern for intracranial mass, bleed.? CT head obtained. Head CT shows no intracranial mass or bleed. On reassessment, patient says she is feeling somewhat better.? Having occasional chest pain, described as twinging. She has had a rather extensive cardiac work-up within the last week.? She had a exercise stress test, Lexiscan, echocardiogram.? These were all reassuring.? Given that she is still having symptoms, will admit for observation.? Patient and family agreeable. The above as per ER physician/documentation. In the emergency room patient received acetaminophen 1000 mg and 500 cc of normal saline IV. She also received Zofran. Also to note that Ms. Moran has a history of hypothyroidism, rheumatic fever, third-degree heart block with TAVR 2020 and permanent pacer placement 12/2020. This a.m. patient denies chest pain and shortness of breath. Currently she is complaining of low back pain. She is also been nauseated and medicated for this. She states she slept little. She is n.p.o. for cardiology visit. [facility] Medical History (Updated 02/25/22 @ 06:18 by Aurora Trent RN) HTN (hypertension) Hx of rheumatic fever Hypothyroid Pacemaker Surgical History Aortic valve replaced Family History Family history of myocardial infarction Sister Social History Smoking Status: Former smoker alcohol intake: never substance use type: denies use current occupational status: retired Travel in the last 8 weeks: None household members: family housing: house caffeine: Yes Review of Systems Constitutional Constitutional: Reports chills, Reports fatigue and Reports headache(s) Eyes Eyes: Denies change in vision and Denies loss of vision ENT Ears, Nose, Mouth, and Throat: Denies dizziness, Denies otalgia, Reports headache(s) and Denies sore throat *Cardiovascular Cardiovascular: Reports chest pain, Denies dyspnea and Denies syncope *Respiratory Respiratory: Denies chest congestion, Denies cough and Denies dyspnea *Gastrointestinal Gastrointestinal: Denies abdominal pain, Denies belching, Denies change in bowel habits, Denies heartburn, Denies hematemesis, Reports na
[2022-02-25 09:10] LABS: Basophils # 0.1 K/mm3 (0-0.2); Basophils % 0.4 % (0.1-2.0); Eosinophils # 0.1 K/mm3 (0.0-0.4); Eosinophils % 0.9 % (0.1-12.0); Hematocrit 41.7 % (37.0-47.0); Hemoglobin 12.7 g/dL (12.2-16.2); Lymphocytes # 0.4 K/mm3 (0.7-4.5); Lymphocytes % 2.5 % (10-50); Mean Corpuscular HGB Conc 30.4 g/dL (31.8-35.4); Mean Corpuscular Hemoglobin 27.4 pg (27.0-31.2); Mean Corpuscular Volume 90.3 fl (81-99); Mean Platelet Volume 8.2 fl (7.4-10.4); Monocytes # 0.1 K/mm3 (0.1-1.0); Monocytes % 0.9 % (1.7-9.3); Neutrophils # 13.1 K/mm3 (1.8-7.8); Neutrophils % 95.3 % (37.0-80.0); Platelet Count 165 K/mm3 (142-424); Red Blood Count 4.62 M/mm3 (4.20-5.40); Red Cell Distribution Width 13.9 % (11.5-17.5); White Blood Count 13.7 K/mm3 (4.8-10.8)
[2022-02-25 09:29] LABS: Chloride 102 mmol/L (98-107); Potassium 3.6 mmoL/L (3.5-5.1); Sodium 140 mmol/L (136-145)
[2022-02-25 09:32] LABS: Anion Gap 14.6 mEq/L (5-15); Blood Urea Nitrogen 18 mg/dl (7-17); Calcium 8.3 mg/dl (8.4-10.2); Carbon Dioxide 27 mmol/L (22.0-30.0); Creatinine Clearance Estimated 49 mL/min (50-200); Estimated Glomerular Filt Rate 54 ml/min (>60); GFR (African American) 65 ML/MIN (>60); Glucose 140 mg/dl (74-100)
[2022-02-25 09:43] LABS: Troponin I 0.05 ng/ml (0.00-0.034)
--- NOTE | 2022-02-25 09:43 | CA_ITS ---
FINAL REPORT TECHNIQUE: Color Doppler, duplex Doppler and arboleda scale sonography of the bilateral neck vasculature was performed. Velocities were measured in the carotid arteries. Stenosis evaluation based on velocity criteria. CLINICAL HISTORY: L carotid bruit, Aortic stenosis s/p porcine AVR, smoker, htn, pacer FINDINGS: The peak systolic velocity of the right common carotid artery is 93 cm/sec and internal carotid artery 110 cm/sec. The diastolic velocity in the internal carotid artery is 35 cm/sec. The ICA/CCA ratio is 1.4. Visually, a small amount of plaque is seen. These findings are consistent with less than 50% stenosis. The external carotid artery is patent. The right vertebral artery is patent with antegrade flow. The peak systolic velocity of the left common carotid artery is 116 cm/sec and internal carotid artery 205 cm/sec. The diastolic velocity in the internal carotid artery is 60 cm/sec. The ICA/CCA ratio is 1.8. Visually, a moderate amount of plaque is seen. These findings are consistent with 50-69% stenosis. The external carotid artery is patent. The left vertebral artery is patent with antegrade flow. IMPRESSION: Less than 50% right carotid stenosis. 50-69% left carotid stenosis. Bilateral patent vertebral arteries. If indicated, CTA or catheter angiography could further evaluate. Reviewed, Interpreted and Dictated by Zach Yeung III, MD Transcribed by Cristina Houser Authenticated and . [facility]
[2022-02-25 09:58] LABS: Alanine Aminotransferase 27 U/L (12-78); Albumin Level 3.9 g/dl (3.5-5.0); Alkaline Phosphatase 92 U/L (38-126); Aspartate Amino Transferase 34 U/L (14-36); Bilirubin,Direct 0.2 mg/dl (0.0-0.4); Bilirubin,Indirect 0.7 mg/dL (0.0-0.9); Bilirubin,Total 0.9 mg/dl (0.2-1.3); Bilirubin,Unconjugated 0.8 mg/dL (0.0-1.1); Chol/HDL Ratio 3.4 (1-3.5); Cholesterol 166 mg/dl (140-200); HDL Cholesterol 49 mg/dl (40-60); Total Protein,Serum 7.2 g/dl (6.3-8.2); Triglycerides 86 mg/dl (30-150); VLDL Cholesterol 17 mg/dL (0-40)
[2022-02-25 10:14] LABS: Free T4 (Free Thyroxine) 1.41 ng/dl (0.78-2.19)
--- NOTE | 2022-02-25 10:26 | EXP.CARD.CON ---
History of Present Illness History of Present Illness Consult date: 02/25/22 Requesting physician: Trevon Garcia Consult reason: chest pain Chief complaint: chest pain History of present illness: This is a 76-year-old white female who presented to the emergency department complaints of chest pain. The patient states that her chest pain started abruptly last night. This was a sharp sensation in the left side of her chest. She states that it did radiate to the left side of her neck. It was associated with a headache in the front aspect of her head as well as diaphoresis and nausea and vomiting. The patient states that this was a mild to moderate pain in intensity. She states that it did not go away and that is why she came into the hospital. She still complains of having intermittent chest pain this morning but it is not as bad as it was yesterday. She states that she still feels very nauseated and has been having vomiting still. She states that her headache has resolved at this point. The patient does have a history of an aortic valve replacement by TAVR in February 2021. She also had a pacemaker placed in December 2020. This was all done in [place]. She does not ever recall having a heart cath or being told that she had blockages in the heart. Her initial troponin was negative but her second troponin is slightly bumped at 0.04. She denies any fever, chills, diarrhea, PND or orthopnea. She denies any shortness of breath or edema. [facility] Medical History (Updated 02/25/22 @ 10:34 by Ernestine Glynn APRN) Angina pectoris HTN (hypertension) Hx of rheumatic fever Hyperlipidemia Hypothyroid Non-STEMI (non-ST elevated myocardial infarction) Pacemaker Paroxysmal atrial fibrillation Surgical History (Updated 02/25/22 @ 10:42 by Ernestine Glynn APRN) Aortic valve replaced Presence of permanent cardiac pacemaker Family History Sister Family history of myocardial infarction Social History Smoking Status: Former smoker alcohol intake: never substance use type: denies use current occupational status: retired Travel in the last 8 weeks: None household members: family housing: house caffeine: Yes Review of Systems Review of Systems Review of systems:: pertinent systems reviewed and negative unless documented below Constitutional Constitutional: Reports system reviewed and no additional complaints, except as documented and Reports headache(s) Eyes Eyes: Reports system reviewed and no additional complaints, except as documented and Denies loss of vision ENT Ears, Nose, Mouth, and Throat: Reports system reviewed and no additional complaints, except as documented, Denies dizziness and Reports headache(s) *Cardiovascular Cardiovascular: Reports system reviewed and no additional complaints, except as documented, Reports as per HPI, Reports chest pain, Denies dyspnea, Denies leg edema, Reports radiating jaw, neck or arm pain and Denies syncope *Respiratory Respiratory: Reports system reviewed and no additional complaints, except as documented and Denies dyspnea *Gastrointestinal Gastrointestinal: Reports system reviewed and no additional complaints, except as documented, Reports nausea and Reports vomiting *Genitourinary Genitourinary: Reports system reviewed and no additional complaints, except as documented *Musculoskeletal Musculoskeletal: Reports system reviewed and no additional complaints, except as documented, Denies numbness and Denies tingling Integumentary/Breasts Skin/Breast: Reports system reviewed and no additional complaints, except as documented *Neurologic Neurologic: Reports system reviewed and no additional complaints, except as documented, Denies dizziness, Reports headache(s), Denies loss of vision, Denies numbness, Denies seizure-like activity, Denies syncope and Denies tingling Psychiatric Psychiatric: Repo
[2022-02-25 10:30] LABS: Thyroid Stimulating Hormone 0.36 uIU/mL (0.465-4.68)
--- NOTE | 2022-02-25 18:00 | PC.NURSE ---
Addendum entered by Jen Hernandes RN 02/25/22 18:20: MOST RECENT VS WAS 80/40 MANUAL. NOTIFIED . 1 L IVF BOLUS ORDERED. Original Note: PT IS SITTING UP IN THE CHAIR. ALERT AND ORIENTED X4. CATH VSS. DRESSING TO THE RT CATH SITE C/D/I. AFTER HEART CATH THIS AFTERNOON PT VOMITED UP WHAT APPEARED TO BE COFFEE GROUND EMESIS. NOTIFIED TALYA ARENAS AND SHE ORDERED PHENERGAN IV 6.25 MG AND PROTONIX 40 MG IV ONE TIME. SINCE PT RECEIVED IV PHENERGAN AND PROTONIX SHE STATES SHE IS FEELING BETTER. PACED ON TELEMETRY. LUNG SOUNDS CLEAR. ABDOMEN SOFT/NON TENDER WITH ACTIVE BOWEL SOUNDS. WILL CONTINUE TO MONITOR.
[2022-02-25 19:23] LABS: Hematocrit 30.9 % (37.0-47.0)
[2022-02-25 19:42] LABS: Hemoglobin 10.6 g/dL (12.2-16.2)
[2022-02-26] VITALS: BP 135/45; PULSE 90; PULSE 91; RESP 18; TEMP 37.3; O2SAT 91
[2022-02-26 00:13] VITALS: PULSE 90
[2022-02-26 04:00] VITALS: BP 95/41; PULSE 75; RESP 18; TEMP 37.1; O2SAT 100
[2022-02-26 04:34] VITALS: BMI 28.3
--- NOTE | 2022-02-26 05:37 | PC.NURSE ---
Addendum entered by Irma Joseph RN 02/26/22 06:17: mild 1+ pitting edema noted to ble Original Note: pt is alert and oriented x4, no acute distress, skin pwd with right radial cath site dressing cdi, lungs clear and diminished, 02 sats 100% on room air, abd soft, non-tender, non-distended, pt without nausea and vomiting this shift, pt voiding without difficulty, urine is cloudy with strong odor, v/s reveal sbp 95-135 with maps 59-70 after holding evening b/p meds, eliquis held per md orders for lower h/h noted, pt denies chest pain, pt complains of back pain and shoulder pain only relived by ibuprofen. no other issues or concerns noted at this time.
[2022-02-26 07:06] LABS: Basophils % 0.4 % (0.1-2.0); Eosinophils # 0.1 K/mm3 (0.0-0.4); Eosinophils % 0.5 % (0.1-12.0); Hematocrit 34.3 % (37.0-47.0); Hemoglobin 11.2 g/dL (12.2-16.2); Lymphocytes # 0.4 K/mm3 (0.7-4.5); Lymphocytes % 3.9 % (10-50); Mean Corpuscular HGB Conc 32.6 g/dL (31.8-35.4); Mean Corpuscular Hemoglobin 29.4 pg (27.0-31.2); Mean Corpuscular Volume 90.1 fl (81-99); Mean Platelet Volume 8.3 fl (7.4-10.4); Monocytes # 0.2 K/mm3 (0.1-1.0); Monocytes % 1.4 % (1.7-9.3); Neutrophils # 9.8 K/mm3 (1.8-7.8); Neutrophils % 93.8 % (37.0-80.0); Platelet Count 124 K/mm3 (142-424); Red Blood Count 3.81 M/mm3 (4.20-5.40); Red Cell Distribution Width 14.2 % (11.5-17.5); White Blood Count 10.4 K/mm3 (4.8-10.8)
[2022-02-26 07:11] LABS: Chloride 101 mmol/L (98-107); Potassium 3.4 mmoL/L (3.5-5.1); Sodium 135 mmol/L (136-145)
[2022-02-26 07:14] LABS: Anion Gap 12.4 mEq/L (5-15); Blood Urea Nitrogen 21 mg/dl (7-17); Calcium 7.3 mg/dl (8.4-10.2); Carbon Dioxide 25 mmol/L (22.0-30.0); Creatinine Clearance Estimated 38 mL/min (50-200); Estimated Glomerular Filt Rate 40 ml/min (>60); GFR (African American) 48 ML/MIN (>60); Glucose 146 mg/dl (74-100)
[2022-02-26 07:19] LABS: MANUAL DIFFERENTIAL MANUAL DIFFERENTIAL (MANUAL DIFF)
[2022-02-26 07:38] VITALS: BP 94/52; PULSE 81; RESP 17; TEMP 36.9; O2SAT 96
[2022-02-26 07:57] LABS: Lymphocytes % 4 % (10-50); Monocytes % 3 % (2-9); Neutrophils % 93 % (42-76); Total Cells Counted 100
--- NOTE | 2022-02-26 07:57 | EXP.PN ---
Subjective *Date: 02/26/22 *Time: 08:45 Interval history: Patient states she feels well. She wants to go home. She denies chest pain, shortness of breath, nausea, and dizziness. She states she did sleep some last night. She states she is voiding QS. Blood pressure remains low with systolic in the 90s. She did receive an IV bolus yesterday and blood pressure medicines were held last night. Exam Data for Last 24 hours Vital signs and Labs for Last 24 Hours: Temp Pulse Resp BP Pulse Ox 98.5 F 81 17 94/52 L 96 02/26/22 07:38 02/26/22 07:38 02/26/22 07:38 02/26/22 07:38 02/26/22 07:38 Laboratory Results - last 24 hr 02/25/22 08:46: WBC 13.7 H D, RBC 4.62, Hgb 12.7, Hct 41.7, MCV 90.3, MCH 27.4, MCHC 30.4 L, RDW 13.9, Plt Count 165, MPV 8.2, Neut % (Auto) 95.3 H, Lymph % (Auto) 2.5 L, Evans % (Auto) 0.9 L, Eos % (Auto) 0.9, Baso % (Auto) 0.4, Neut # (Auto) 13.1 H, Lymph # (Auto) 0.4 L, Evans # (Auto) 0.1, Eos # (Auto) 0.1, Baso # (Auto) 0.1 02/25/22 08:46: Sodium 140, Potassium 3.6, Chloride 102, Carbon Dioxide 27, Anion Gap 14.6, BUN 18 H, Creatinine 1.00, Estimated Creat Clear 49, Estimated GFR 54 L, Est GFR ( Amer) 65, Glucose 140 H, Calcium 8.3 L, Troponin I 0.05 H 02/25/22 08:46: Total Bilirubin 0.9, Direct Bilirubin 0.2, Conjugated Bilirubin 0.0, Indirect Bilirubin 0.7, Unconjugated Bilirubin 0.8, AST 34, ALT 27, Alkaline Phosphatase 92, Total Protein 7.2, Albumin 3.9, Triglycerides 86, Cholesterol 166, LDL Cholesterol Direct 73.00 L, VLDL Cholesterol 17, HDL Cholesterol 49, Cholesterol/HDL Ratio 3.4, TSH 0.36 L 02/25/22 08:46: Free T4 1.41 02/25/22 18:48: Hgb 10.6 L D, Hct 30.9 L 02/26/22 06:45: WBC 10.4, RBC 3.81 L, Hgb 11.2 L, Hct 34.3 L, MCV 90.1, MCH 29.4, MCHC 32.6, RDW 14.2, Plt Count 124 L, MPV 8.3, Neut % (Auto) 93.8 H, Lymph % (Auto) 3.9 L, Evans % (Auto) 1.4 L, Eos % (Auto) 0.5, Baso % (Auto) 0.4, Neut # (Auto) 9.8 H, Lymph # (Auto) 0.4 L, Evans # (Auto) 0.2, Eos # (Auto) 0.1, Baso # (Auto) 0.0 02/26/22 06:45: Sodium 135 L, Potassium 3.4 L, Chloride 101, Carbon Dioxide 25, Anion Gap 12.4, BUN 21 H, Creatinine 1.30 H D, Estimated Creat Clear 38, Estimated GFR 40 L, Est GFR ( Amer) 48 L D, Glucose 146 H, Calcium 7.3 L I & O for Last 24 hours: Intake & Output 02/23/22 02/24/22 02/25/22 02/26/22 11:59 11:59 11:59 11:59 Intake Total 0 / 0 Output Total 0 / 0 200 / 200 Balance 0 / 0 -200 / -200 Weight 147 lb 14.4 oz 150 lb 1.6 oz Constitutional Constitutional: no acute distress Comments: Sitting up in the chair at bedside and appears comfortable. She has completed breakfast. *Routine Respiratory Exam Respiratory: Present CTA bilaterally (Anteriorly and posteriorly) *Routine Cardiovascular Exam Cardiovascular: Present RRR (Mostly paced rhythm) *Routine Abdominal Exam Abdominal: Present soft and normoactive bowel sounds; Absent tenderness or distended *Routine Extremities Exam Extremities: Absent edema or calf tenderness *Routine Neurological Exam Neurological: Present alert and oriented X3 Assessment and Plan *Assessment and plan (1) Non-STEMI (non-ST elevated myocardial infarction): Status: Acute Category: Medical Code(s): I21.4 - Non-ST elevation (NSTEMI) myocardial infarction (2) Angina pectoris: Status: Acute Category: Medical Code(s): I20.9 - Angina pectoris, unspecified (3) Elevated troponin: Status: Acute Category: Medical Code(s): R77.8 - Other specified abnormalities of plasma proteins (4) Presence of permanent cardiac pacemaker: Status: Acute Category: Surgical Code(s): Z95.0 - Presence of cardiac pacemaker (5) S/P TAVR (transcatheter aortic valve replacement): Status: Acute Category: Surgical Code(s): Z95.2 - Presence of prosthetic heart valve (6) Vomiting: Status: Acute Category: Medical Code(s): R11.10 - Vomiting, unspecified (7) Paroxysmal atrial
[2022-02-26 07:59] LABS: Hypochromasia 1+
[2022-02-26 08:00] LABS: Platelet Estimate Slight Decrease
--- NOTE | 2022-02-26 08:55 | EXP.CARD.PN ---
Subjective Subjective Date: 02/26/22 Time: 08:30 Principal diagnosis: nonstemi, CAD, HHD Interval history: This is a 76-year-old white female who presented to the emergency department with complaints of chest pain. She had an elevated troponin consistent with a non-STEMI. The patient underwent left cardiac catheterization yesterday and had mild nonocclusive coronary artery disease with no percutaneous intervention. The patient did have hyperdynamic left ventricle and her elevated troponin was most likely secondary to demand ischemia from her hyper dynamic ventricle and hypertensive heart disease. This morning she denies any chest pain or pressure. She denies any shortness of breath or edema. She denies any fever, chills, nausea, vomiting, diarrhea, PND or orthopnea. Left heart cath shows: Patent coronary arteries Hyperdynamic ventricle Elevated LVEDP Elevated troponin is secondary to demand ischemia with hyperdynamic ventricle PLAN 1. Aggressive medical management which should include beta-blockers and or diltiazem or verapamil 2. Continue with risk factor modification 3. Aggressive rate controlling medicine Exam Data for Last 24 hours Vital signs and Labs for Last 24 Hours: Temp Pulse Resp BP Pulse Ox 98.5 F 81 17 94/52 L 96 02/26/22 07:38 02/26/22 07:38 02/26/22 07:38 02/26/22 07:38 02/26/22 07:38 Laboratory Results - last 24 hr 02/25/22 08:46: WBC 13.7 H D, RBC 4.62, Hgb 12.7, Hct 41.7, MCV 90.3, MCH 27.4, MCHC 30.4 L, RDW 13.9, Plt Count 165, MPV 8.2, Neut % (Auto) 95.3 H, Lymph % (Auto) 2.5 L, Ogle % (Auto) 0.9 L, Eos % (Auto) 0.9, Baso % (Auto) 0.4, Neut # (Auto) 13.1 H, Lymph # (Auto) 0.4 L, Ogle # (Auto) 0.1, Eos # (Auto) 0.1, Baso # (Auto) 0.1 02/25/22 08:46: Sodium 140, Potassium 3.6, Chloride 102, Carbon Dioxide 27, Anion Gap 14.6, BUN 18 H, Creatinine 1.00, Estimated Creat Clear 49, Estimated GFR 54 L, Est GFR ( Amer) 65, Glucose 140 H, Calcium 8.3 L, Troponin I 0.05 H 02/25/22 08:46: Total Bilirubin 0.9, Direct Bilirubin 0.2, Conjugated Bilirubin 0.0, Indirect Bilirubin 0.7, Unconjugated Bilirubin 0.8, AST 34, ALT 27, Alkaline Phosphatase 92, Total Protein 7.2, Albumin 3.9, Triglycerides 86, Cholesterol 166, LDL Cholesterol Direct 73.00 L, VLDL Cholesterol 17, HDL Cholesterol 49, Cholesterol/HDL Ratio 3.4, TSH 0.36 L 02/25/22 08:46: Free T4 1.41 02/25/22 18:48: Hgb 10.6 L D, Hct 30.9 L 02/26/22 06:45: WBC 10.4, RBC 3.81 L, Hgb 11.2 L, Hct 34.3 L, MCV 90.1, MCH 29.4, MCHC 32.6, RDW 14.2, Plt Count 124 L, MPV 8.3, Neut % (Auto) 93.8 H, Lymph % (Auto) 3.9 L, Ogle % (Auto) 1.4 L, Eos % (Auto) 0.5, Baso % (Auto) 0.4, Neut # (Auto) 9.8 H, Lymph # (Auto) 0.4 L, Ogle # (Auto) 0.2, Eos # (Auto) 0.1, Baso # (Auto) 0.0, Total Counted 100, Neutrophils % (Manual) 93 H, Lymphocytes % (Manual) 4 L, Monocytes % (Manual) 3, Platelet Estimate Slight decrease, Hypochromasia 1+ 02/26/22 06:45: Sodium 135 L, Potassium 3.4 L, Chloride 101, Carbon Dioxide 25, Anion Gap 12.4, BUN 21 H, Creatinine 1.30 H D, Estimated Creat Clear 38, Estimated GFR 40 L, Est GFR ( Amer) 48 L D, Glucose 146 H, Calcium 7.3 L I & O for Last 24 hours: Intake & Output 02/23/22 02/24/22 02/25/22 02/26/22 23:59 23:59 23:59 23:59 Intake Total 0 / 0 Output Total 0 / 0 200 / 200 Balance 0 / 0 -200 / -200 Weight 147 lb 14.4 oz 150 lb 1.6 oz Narrative: CNI shows: Less than 50% right carotid stenosis.? 50-69% left carotid stenosis.? Bilateral patent vertebral arteries.? If indicated, CTA or catheter angiography could further evaluate. Constitutional Constitutional: no acute distress and average body habitus *Routine HEENT Exam Head: Present normocephalic and atraumatic ENT: Present mucous membranes moist *Routine Neck Exam Neck: Present supple, full ROM and normal carotid upstroke; Absent JVD, carotid bruit or lymphadenopathy *Routine Respiratory Exam Respiratory: Present CTA bilaterally, normal respiratory effort, able to speak in compl
--- NOTE | 2022-02-26 11:06 | PC.NURSE ---
Awaiting on Dr. Garcia to confirm meds upon d/c recommended by cardiology.
--- NOTE | 2022-02-26 11:29 | PC.NURSE ---
U/A not obtained prior to d/c, educated pt if further problems arose to notify PCP. F/U appt is in place with Dr. Singer and Dr. Lawton as well.
--- NOTE | 2022-02-27 13:04 | CARE MANAGER ---
Attempted post-discharge follow-up phone calls, no answer.
--- NOTE | 2022-02-28 21:48 | EXP.DC.SUM ---
General Admission date:: 02/25/22 Discharge date: 02/26/22 HPI HPI HPI: HPI narrative as per [facility]: 76-year-old female presenting to the emergency department with chest pain, headache.? Symptoms started earlier this evening.? The chest pain is on the left side, anterior.? Described as sharp.? Nothing seems to make it better or worse.? Has been constant since onset.? She was just sitting at home when the pain started.? No radiation to the jaw, arm, back.? No associated nausea or diaphoresis.? She also is a headache that is located in the front, squeezing pain.? No vision changes.? No speech difficulty.? Daughter says she has been complaining of headache on and off for the last few days.? No known sick exposures.? No fevers, chills, nausea, vomiting.? Cardiac history includes pacemaker and aortic valve replacement.? She follows with [facility].? Takes Eliquis, aspirin, Plavix. Medical Decision Narrative: In summary this is a 76-year-old female with history of aortic valve replacements, cardiac pacemaker, COVID with cognitive impairment, presenting to the emergency department with chest pain and headache.? Patient clinically stable on arrival.? Hypertensive.? Other vital signs within normal limits.? Will obtain CBC, CMP, chest x-ray, EKG, troponin profile. Initial EKG shows an irregularly paced rhythm. Initial laboratory results are reassuring.? Glucose and electrolytes within normal limits.? No anemia.? No leukocytosis. Initial troponin is 0.02.? Will obtain 2-hour repeat troponin. On reassessment, patient is having persistent vomiting, despite Zofran.? Concern for intracranial mass, bleed.? CT head obtained. Head CT shows no intracranial mass or bleed. On reassessment, patient says she is feeling somewhat better.? Having occasional chest pain, described as twinging. She has had a rather extensive cardiac work-up within the last week.? She had a exercise stress test, Lexiscan, echocardiogram.? These were all reassuring.? Given that she is still having symptoms, will admit for observation.? Patient and family agreeable. The above as per ER physician/documentation. In the emergency room patient received acetaminophen 1000 mg and 500 cc of normal saline IV. She also received Zofran. Also to note that Ms. Moran has a history of hypothyroidism, rheumatic fever, third-degree heart block with TAVR 2020 and permanent pacer placement 12/2020. This a.m. patient denies chest pain and shortness of breath. Currently she is complaining of low back pain. She is also been nauseated and medicated for this. She states she slept little. She is n.p.o. for cardiology visit. Hospital Course Hospital Course Hospital Course: Her second troponin was slightly elevated. Cardiology was therefore consulted. They felt she had an NSTEMI and would need a heart cath. She had an echo which showed an EF of 60 to 80% with an RSVP of 40 mmHg. There was a normal functioning bioprosthetic aortic valve in place with trace AR and mild MR. Cardiology continued her on Lasix and started her on Aldactone 25 mg daily. Her blood pressure was elevated so they started her on Coreg 12.5 mg twice daily. The patient's heart cath showed mild nonocclusive coronary artery disease with no percutaneous intervention necessary. She did have a hyperdynamic left ventricle and her elevated troponin was felt to be secondary to demand ischemia. By 02/26/2022, she denied any chest pain or pressure. Her blood pressure was low with the addition of the diuretics and blood pressure medication. She received an IV bolus and her blood pressure medications had to be held during the night. Her blood pressure did improve. Cardiology felt she would need a baby aspirin daily as well as a statin. Her losartan and isosorbide were discontinued and they felt she should be continued on Lasix and Aldactone due to her elevated LVEDP and elevated RVSP. She had a carotid ultrasound which showed carotid
== END 2022-02-26 11:27 | disposition home or self-care (01) ==
LOC: ER 03:20 → 2ND 04:23
PROVIDERS: Internal Medicine; Nurse Practitioner Family; Admitting Provider Internal Medicine Adolescent Medicine; Emergency Provider Emergency Medicine; PCP Family Medicine; Visit Provider Family Medicine
DX: R07.9 Chest pain, unspecified (principal); Z95.0 Presence of cardiac pacemaker; Z95.2 Presence of prosthetic heart valve; I48.0 Paroxysmal atrial fibrillation; I70.213 Atherosclerosis of native arteries of extremities with intermittent claudication, bilateral legs; Z95.820 Peripheral vascular angioplasty status with implants and grafts; I10 Essential (primary) hypertension; I25.118 Atherosclerotic heart disease of native coronary artery with other forms of angina pectoris; I27.20 Pulmonary hypertension, unspecified; I65.23 Occlusion and stenosis of bilateral carotid arteries; E87.6 Hypokalemia; I21.4 Non-ST elevation (NSTEMI) myocardial infarction
CPT/HCPCS: G0378; 36415; 70450; 71045; 80048; 80061; 80076; 84439; 84443; 84484; 85007; 85014; 85018; 85025; 93005; 93458; 93880; 99152; 99285; C1725; C1769; C9803; J0131; J1644; J2405; Q9967; U0003; U0005

== ENCOUNTER 2022-02-27 14:59 | Outpatient (CLI) | payer MEDICARE, MEDICAID, SELFPAY ==
[2022-02-27 15:04] VITALS: BP 108/63; PULSE 74; RESP 18; TEMP 36.4; O2SAT 98
[2022-02-27 16:25] VITALS: BP 110/59; PULSE 71; RESP 18; O2SAT 98
== END 2022-02-27 16:29 | disposition home or self-care (01) ==
PROVIDERS: PCP Family Medicine; Visit Provider Physician Assistant
DX: E86.0 Dehydration (principal); E86.1 Hypovolemia
CPT/HCPCS: 96360

== ENCOUNTER → 2022-02-28 19:13 | Outpatient (CLI) | payer MEDICARE, MEDICAID, SELFPAY ==
[2022-02-28 20:14] LABS: Adenovirus F 40/41, stool Not Detected (NotDetected); Astrovirus Not Detected (NotDetected); Cryptosporidium Not Detected (NotDetected); Cyclospora Cayetanesis Not Detected (NotDetected); Entamoeba histolytica Not Detected (NotDetected); Enteroaggregative E coli Not Detected (NotDetected); Enterotoxigenic E coli Not Detected (NotDetected); Giardia lamblia Not Detected (NotDetected); Norovirus Not Detected (NotDetected); Plesimonas Shigalloides, PCR Not Detected (NotDetected); Rotavirus A Not Detected (NotDetected); Salmonella, PCR Not Detected (NotDetected); Sapovirus Not Detected (NotDetected); Shiga-like toxin E coli Not Detected (NotDetected); Shigella Enterovasive E coli Not Detected (NotDetected); Vibrio Cholerae Not Detected (NotDetected); Vibrio, PCR Not Detected (NotDetected); Yersinia Entercolitica, PCR Not Detected (NotDetected)
[2022-03-01 08:20] LABS: Campylobacter Detected (NotDetected); Clostridium Difficile A/B, PCR Detected (NotDetected); Enteropathogenic E coli Detected (NotDetected)
== END ==
PROVIDERS: PCP Physician Assistant; Visit Provider Physician Assistant
DX: R19.7 Diarrhea, unspecified (principal); A04.5 Campylobacter enteritis; A04.72 Enterocolitis due to Clostridium difficile, not specified as recurrent; A04.4 Other intestinal Escherichia coli infections
CPT/HCPCS: 87506

== ENCOUNTER 2022-03-03 22:38 | Emergency (ER) | payer MEDICARE, MEDICAID, SELFPAY ==
[2022-03-03 22:38] VITALS: BP 109/51; PULSE 78; RESP 28; TEMP 37.2; O2SAT 97; BMI 28.1
--- NOTE | 2022-03-03 22:52 | ECG_ITS ---
APPROVED REPORT Exam: Resting ECG HR:79 bpm ECG Measurements Heart Rate 79 AXES IN 172 P 41 QRSd 164 QRS 144 QT 442 T 50 QTc 476 Conclusion ELECTRONIC VENTRICULAR PACEMAKER ABNORMAL RHYTHM ECG UNCONFIRMED REPORT Electronically signed by : Khang Peter MD 03/05/2022 21:13:32
--- NOTE | 2022-03-03 22:54 | HMH.EDWEAK ---
Discharge Plan Disposition Patient Disposition: Home, Self-Care Chief Complaint: Weakness Prescriptions Prescriptions: No Action Eliquis 5 mg tablet 5 mg PO BID atorvastatin 40 mg tablet 40 mg PO HS furosemide 40 MG tablet 40 mg PO DAILY levothyroxine 88 MCG tablet 88 mcg PO DAILY carvedilol [Coreg] 12.5 mg tablet 12.5 mg PO BID Rx Instructions: must administer with a meal/food aspirin 81 mg tablet,delayed release (DR/EC) 81 mg PO DAILY spironolactone 25 mg tablet 25 mg PO DAILY vancomycin 125 mg capsule 125 mg PO QID Label Comments: TAKE 1 CAPSULE BY MOUTH EVERY 6 HOURS FOR 10 DAYS ciprofloxacin HCl 500 mg tablet 500 mg PO BID Label Comments: TAKE 1 TABLET BY MOUTH EVERY 12 HOURS FOR 7 DAYS Referrals Follow up/Referrals: Elia Singer MD [Primary Care Provider] - See instructions Clinical Impressions Clinical Impression: Enteritis due to Clostridium difficile, Coronary artery disease, Acute hypokalemia Discharge ED Provider: Tae Rocha Weakness HPI General Chief complaint: Weakness Stated complaint: HBP Time Seen by Provider: 03/03/22 22:54 Mode of Arrival: Family Vehicle Source of Information: Patient, Relative and Medical Record Limitations: No Limitations Description of Symptoms (Recalled from ER Triage Doc. by RN): pt arrived pov with family. the family requested help out of the vehicle stating her systolic pressure was 88 and they were directed to come to the ER for low blood pressure. they stated the pt had just gotten out of the hospital and was going to be seen tomorrown for dehydration. History of Present Illness HPI Narrative: recent admit and heart cath and tonight had episode of low bp at home - has enteritis - no chest pain Complaint: generalized weakness Onset (ago): hour(s) Duration: intermittent Location: generalized Migration: none Severity: moderate Context: new medication and recent illness Associated symptoms: denies other symptoms Related Data Home Medications Medication Instructions Recorded Confirmed furosemide 40 mg tablet 40 mg PO DAILY Fluid 04/18/21 03/03/22 levothyroxine 88 mcg tablet 88 mcg PO DAILY hyperthyroid 04/18/21 03/03/22 apixaban 5 mg tablet (Eliquis) 5 mg PO BID pacemaker 02/08/22 03/03/22 atorvastatin 40 mg tablet 40 mg PO HS Hyperlipidemia 02/25/22 03/03/22 aspirin 81 mg tablet,delayed 81 mg PO DAILY Blood thinner 02/27/22 03/03/22 release carvedilol 12.5 mg tablet (Coreg) 12.5 mg PO BID blood pressure 02/27/22 03/03/22 spironolactone 25 mg tablet 25 mg PO DAILY Fluid 02/27/22 03/03/22 ciprofloxacin HCl 500 mg tablet 500 mg PO BID Infection 03/03/22 03/03/22 vancomycin 125 mg capsule 125 mg PO QID Infection 03/03/22 03/03/22 Allergies Allergy/AdvReac Type Severity Reaction Status Date / Time No Known Allergies Allergy Verified 02/08/22 10:49 [facility] Medical History (Updated 03/04/22 @ 00:26 by Tae Rocha MD) Angina pectoris Coronary artery disease COVID-19 HTN (hypertension) Hx of rheumatic fever Hyperlipidemia Hypertensive heart disease Hypothyroid Intermittent claudication Non-STEMI (non-ST elevated myocardial infarction) Pacemaker Paroxysmal atrial fibrillation Pneumonia due to COVID-19 virus Pulmonary hypertension Stenosis of carotid artery Third degree heart block by electrocardiogram Surgical History (Updated 03/02/22 @ 00:00 by Samantha Barrera) Aortic valve replaced Presence of permanent cardiac pacemaker S/P TAVR (transcatheter aortic valve replacement) Family History Family history of myocardial infarction Sister Social History (Updated 02/27/22 @ 15:42 by Aung Washington, MURPHY) Smoking Status: Former smoker alcohol intake: never substance use type: denies use current occupational status: retired Travel in the last 8 weeks: None household members
--- NOTE | 2022-03-03 22:56 | XR_ITS ---
PROCEDURE INFORMATION: Exam: XR Chest Exam date and time: 03/03/2022 11:09 PM Age: 76 years old Clinical indication: Other: General weakness TECHNIQUE: Imaging protocol: Radiologic exam of the chest. Views: 1 view. COMPARISON: CR XR CHEST PORTABLE 02/25/2022 1:57 AM FINDINGS: Tubes, catheters and devices: Cardiac pacemaker in stable position in the left hemithorax. Lungs: No focal pulmonary consolidation. Mild bibasilar opacities related to airspace disease or atelectasis. Pleural spaces: No pleural effusion. No pneumothorax. Heart/Mediastinum: Cardiomegaly. Bones/joints: No acute findings. IMPRESSION: 1. No acute consolidation. 2. Mild bibasilar opacities related to airspace disease or atelectasis. 3. Cardiomegaly.
[2022-03-03 23:00] VITALS: BP 101/61; PULSE 81; RESP 24; O2SAT 99
[2022-03-03 23:01] LABS: Coronavirus 19, PCR Not Detected (NotDetected); Influenza A, PCR Not Detected (NotDetected); Influenza B, PCR Not Detected (NotDetected)
--- NOTE | 2022-03-03 23:02 | PC.NURSE ---
RAD at for CXR
[2022-03-03 23:14] LABS: Basophils # 0.1 K/mm3 (0-0.2); Basophils % 0.3 % (0.1-2.0); Eosinophils # 0.1 K/mm3 (0.0-0.4); Eosinophils % 0.4 % (0.1-12.0); Hematocrit 33.1 % (37.0-47.0); Hemoglobin 10.8 g/dL (12.2-16.2); Lymphocytes # 1.1 K/mm3 (0.7-4.5); Lymphocytes % 6.4 % (10-50); Mean Corpuscular HGB Conc 32.8 g/dL (31.8-35.4); Mean Corpuscular Hemoglobin 28.6 pg (27.0-31.2); Mean Corpuscular Volume 87.3 fl (81-99); Mean Platelet Volume 10.9 fl (7.4-10.4); Monocytes # 0.7 K/mm3 (0.1-1.0); Monocytes % 3.9 % (1.7-9.3); Platelet Count 88 K/mm3 (142-424); Red Blood Count 3.79 M/mm3 (4.20-5.40); Red Cell Distribution Width 14.6 % (11.5-17.5); White Blood Count 16.8 K/mm3 (4.8-10.8)
[2022-03-03 23:15] LABS: Alanine Aminotransferase 51 U/L (12-78); Albumin Level 2.6 g/dl (3.5-5.0); Albumin/Globulin Ratio 0.8 (1.1-1.8); Alkaline Phosphatase 194 U/L (38-126); Anion Gap 13.8 mEq/L (5-15); Aspartate Amino Transferase 69 U/L (14-36); Bilirubin,Total 1.4 mg/dl (0.2-1.3); Blood Urea Nitrogen 14 mg/dl (7-17); Calcium 7.5 mg/dl (8.4-10.2); Carbon Dioxide 25 mmol/L (22.0-30.0); Chloride 94 mmol/L (98-107); Creatinine Clearance Estimated 46 mL/min (50-200); Estimated Glomerular Filt Rate 48 ml/min (>60); GFR (African American) 58 ML/MIN (>60); Globulin 3.2 g/dL (1.3-3.2); Glucose 123 mg/dl (74-100); Sodium 130 mmol/L (136-145); Total Protein,Serum 5.8 g/dl (6.3-8.2)
[2022-03-03 23:17] LABS: MANUAL DIFFERENTIAL MANUAL DIFFERENTIAL (MANUAL DIFF)
[2022-03-03 23:25] LABS: Microscopic, Urine URINE MICROSCOPIC (MICROSCOPIC)
[2022-03-03 23:27] LABS: Troponin I 0.17 ng/ml (0.00-0.034)
[2022-03-03 23:29] LABS: Lymphocytes % 5 % (10-50); Neutrophils % 84 % (42-76); Platelet Estimate Normal; RBC Morphology Normal; Total Cells Counted 100
[2022-03-03 23:30] VITALS: BP 104/56; PULSE 75; RESP 27; O2SAT 100
[2022-03-03 23:31] LABS: Potassium 2.8 mmoL/L (3.5-5.1)
--- NOTE | 2022-03-03 23:40 | PC.NURSE ---
Octavio from lab called a critical potassium on pt dr reese notified
[2022-03-03 23:42] LABS: Appearance,Urine CLEAR (Clear); Bilirubin,Urine Negative (Negative); Blood, Urine 1+ (Negative); Color,Urine YELLOW (Yellow); Glucose,Urine (UA) Negative (Negative); Ketones,Urine Negative (Negative); Leukocyte Esterase,Urine Negative (Negative); Nitrate,Urine Negative (Negative); Protein,Urine 1+ (Negative); Specific Gravity, Urine 1.025 (1.005-1.030); Urobilinogen,Urine 0.2 EU/dl (0.2)
[2022-03-03 23:51] VITALS: BP 104/51; BP 108/50; BP 99/40; PULSE 77; PULSE 79; PULSE 84
--- NOTE | 2022-03-03 23:54 | PC.NURSE ---
Pt assisted to bathrrom. Urine sample obtained.
--- NOTE | 2022-03-04 00:15 | PC.NURSE ---
Dr. Garcia pagepastor
--- NOTE | 2022-03-04 00:16 | PC.NURSE ---
Dr. Rocha speaking to Dr. Garcia
[2022-03-04 00:27] VITALS: BP 95/50; PULSE 78; RESP 18; TEMP 36.9; O2SAT 99
== END 2022-03-04 00:43 | disposition home or self-care (01) ==
PROVIDERS: Emergency Provider Emergency Medicine; PCP Family Medicine
DX: A04.72 Enterocolitis due to Clostridium difficile, not specified as recurrent (principal); E87.6 Hypokalemia; I25.10 Atherosclerotic heart disease of native coronary artery without angina pectoris; Z79.82 Long term (current) use of aspirin; Z79.01 Long term (current) use of anticoagulants; Z79.899 Other long term (current) drug therapy; E03.9 Hypothyroidism, unspecified; Z95.0 Presence of cardiac pacemaker; I10 Essential (primary) hypertension; I73.9 Peripheral vascular disease, unspecified; I48.91 Unspecified atrial fibrillation; I65.29 Occlusion and stenosis of unspecified carotid artery
CPT/HCPCS: 71045; 80053; 81001; 84484; 85007; 85025; 93005; 96365; 99284; C9803; U0003; U0005